=== PATIENT | female | born 1950 | race Hispanic/Latino ===

== ENCOUNTER → 2023-04-21 15:56 | Outpatient (CLI) | payer MEDICARE, OTHER, SELFPAY ==
[2023-04-21 16:25] LABS: Ammonia (NH3) 35 umol/L (9-30)
[2023-04-21 16:31] LABS: Add Manual Diff / Slide Review NO; Basophils Absolute Auto 0 /uL (0-100); Basophils Percent Auto 0.9 % (0-2); Eosinophils Absolute Auto 200 /uL (0-450); Eosinophils Percent Auto 3.9 % (2-4); Hematocrit 38.7 % (36-46); Hemoglobin 13.2 g/dL (12.0-16.0); Lymphocytes Absolute Auto 800 /uL (1100-4500); Lymphocytes Percent Auto 15.4 % (25-40); Mean Corpuscular HGB Conc 34.2 % (30-36); Mean Corpuscular Volume 99.4 fL (80-100); Monocytes Absolute Auto 400 /uL (0-900); Monocytes Percent Auto 8.1 % (3-14); Neutrophils Absolute Auto 3700 /uL (1500-7000); Neutrophils Percent Auto 71.7 % (50-75); Platelet Count 111 X10^3/uL (150-400); Red Blood Cell Count 3.89 X10^6/uL (4.0-5.2); Red Cell Distribution Width 13.7 % (11.6-14.8); White Blood Cell Count 5.2 X10^3/uL (4.5-11.0)
[2023-04-21 17:08] LABS: Alanine Aminotransferase 42 IU/L (<35); Albumin Globulin Ratio 1.3 (1.0-2.8); Alkaline Phosphatase 106 U/L (38-126); Aspartate Aminotransferase 47 IU/L (14-36); BUN Creatinine Ratio 22.1 (6-22); Bilirubin Total 1.8 mg/dL (0.2-1.3); Blood Urea Nitrogen 17 mg/dL (7-17); Calcium 9.8 mg/dL (8.4-10.2); Carbon Dioxide 25 mmol/L (22-32); Chloride 101 mmol/L (98-107); Cholesterol 147 mg/dL (140-199); Estimated Glomerular Filt Rate > 60 mL/min (>60); Globulin 3.2 g/dL (1.7-4.1); Glucose 132 mg/dL (80-110); HDL Cholesterol 56 mg/dL (40-60); HEMOLYSIS < 15 (0-50); LDL Cholesterol Calculated 63 mg/dL (<100); Potassium 4.4 mmol/L (3.4-5.1); Sodium 134 mmol/L (137-145); Total Protein 7.2 g/dL (6.3-8.2); Triglycerides 140 mg/dL (35-150)
[2023-04-21 17:34] LABS: TSH w/ Reflex to FT4 2.59 uIU/mL (0.47-4.68)
[2023-04-21 17:38] LABS: Creatinine Urine Random 54.9 mg/dL
[2023-04-21 17:43] LABS: Microalbumi Creatinin Ratio Ur 14.5 ug/mg CR (<30); Microalbumin Urine Random 0.8 mg/dL (0-1.6)
[2023-04-23 06:44] LABS: x Labcorp Estim. Avg Glu (eAG) 148 mg/dL (.); x Labcorp Hemoglobin A1c 6.8 % (4.8-5.6)
== END ==
PROVIDERS: PCP Family Medicine; Referring Provider Family Medicine; Visit Provider Family Medicine
DX: E11.9 Type 2 diabetes mellitus without complications (principal); K74.60 Unspecified cirrhosis of liver; I10 Essential (primary) hypertension
CPT/HCPCS: 36415; 80053; 80061; 82043; 82140; 82570; 83036; 84443; 85025

== ENCOUNTER 2023-04-27 12:09 | Day surgery (SDC) | payer MEDICARE, OTHER, SELFPAY ==
--- NOTE | 2023-04-27 | PATH_ITS ---
[facility] Accession Number: [id number] No. of containers..01 Tissue . 01 Material submitted: . colon - TRANSVERSE COLON POLYP . 01 Diagnosis: Transverse Colon, Polypectomy: Tubular adenoma. MRV 04/30/2023 1705 Local . 01 Electronically signed: . Roseanna Hensley MD, Pathologist NPI- [id number] . 01 Gross description: . TRANSVERSE COLON POLYP: Received in formalin is 1 fragment(s) of danielle, soft tissue measuring 0.3 x 0.3 x 0.3 cm submitted entirely in 1 cassette(s) /AUSTYN 04/29/2023 2233 Local . 01 Pathologist provided ICD-10: D12.3 . 01 CPT . 554386 Specimen Comment: A courtesy copy of this report has been sent to [phone] Performed at: 01 [facility] [address] [place] [address], [place], [place] [id number] MD Nitesh Low MD Phone: [phone]
[2023-04-27 12:51] VITALS: BP 153/69; PULSE 66; RESP 16; TEMP 36.2; O2SAT 96; BMI 36.6
[2023-04-27] MEDS: LACTATED RINGERS 1,000 ML 200 ML IV (13:14)
--- NOTE | 2023-04-27 13:45 | PM.HP.1 ---
History of Present Illness History of Present Illness Date Patient Seen: 04/27/23 Time Patient Seen: 13:45 Chief complaint: EGD & Colonoscopy Narrative: 72-year-old woman history of cirrhosis with esophageal varices and previous paracentesis here for screening EGD and colonoscopy. Last colonoscopy was approximately 5 years ago with benign polyp. Currently no abdominal pain nausea vomiting blood per rectum. March 2023 Plt 111, TB 1.8, Albumin 4, Cr 0.8 PFSH Medical History (Updated 04/27/23 @ 13:47 by Levar Mandel MD) Anemia Anxiety Arthritis Chicken pox Cirrhosis Colon polyps Depression Depression Diabetes type 2, controlled Hypertension Hypothyroidism Measles Mumps Neuropathy Painful menstrual periods Sleep apnea Surgical History Anesthesia History of cholecystectomy (~1968) History of hysterectomy History of tubal ligation (~1974) Family History Father COPD (chronic obstructive pulmonary disease) Mother Diabetes mellitus History of heart disease Hyperlipidemia Hypertension Brother Type 2 diabetes mellitus Hypertension Sister Cancer Sister Osteopenia Grandfather Cancer Grandfather Pneumonia Social History household members: none Smoking Status: Former smoker alcohol intake: never Meds Home Medications and Allergies Home Medications Medication Instructions Recorded Confirmed Type L.parac,rhamn-B.animalis-vit C PO DAILY 04/21/23 04/21/23 History [Daily Probiotic (4 Strains)] escitalopram oxalate 5 mg tablet 5 mg PO DAILY 04/21/23 04/27/23 History furosemide 20 mg tablet 20 mg PO DAILY 04/21/23 04/27/23 History glimepiride 2 mg tablet 2 mg PO BID 04/21/23 04/21/23 History lactulose 10 gram/15 mL oral 10 g PO DAILY 04/21/23 04/27/23 History solution (Constulose) levothyroxine 75 mcg tablet 75 mcg PO DAILY 04/21/23 04/27/23 History magnesium 300 mg PO DAILY 04/21/23 04/27/23 History metformin 500 mg tablet 500 mg PO BID 04/21/23 04/27/23 History propranolol 10 mg tablet 10 mg PO ONCE 04/21/23 04/27/23 History tramadol PO 04/21/23 04/21/23 History Allergies Allergy/AdvReac Type Severity Reaction Status Date / Time rubber, unspecified Allergy Verified 04/27/23 12:47 wool Allergy Verified 04/27/23 12:47 morphine AdvReac Unknown Verified 04/27/23 12:47 propoxyphene [From Darvon] AdvReac Unknown Verified 04/27/23 12:47 Exam Vital Signs (past 8 hours): - 04/27/23 12:51 Temperature 97.2 F L Pulse Rate 66 Respiratory Rate 16 Blood Pressure 153/69 H Pulse Oximetry 96 Oxygen Delivery Method Room Air Oxygen Delivery Method Room Air Narrative Exam Narrative: General adult woman alert oriented no acute distress Abdomen soft nondistended nontender Extremities warm well perfused Assessment & Plan Assessment and plan (1) Cirrhosis: Qualifiers: Hepatic cirrhosis type: other cirrhosis Qualified Code(s): K74.69 - Other cirrhosis of liver Status: Acute (2) Colon polyps: Status: Acute Assessment & Plan narrative: 72-year-old woman with end-stage liver disease here for screening EGD and colonoscopy. Technical details were discussed. Risks, benefits, alternatives explained. Risks including but not limited to myocardial infarction, aspiration, bleeding, pain, missed lesion, incomplete examination, need for further radiographic studies, intestinal perforation, and need for major abdominal surgery were discussed. All questions were answered to their satisfaction, and they are in agreement with this plan.
[2023-04-27 14:14] VITALS: BP 111/57; PULSE 71; RESP 12; TEMP 35.9; O2SAT 96
--- NOTE | 2023-04-27 14:14 | PM.OP.EC ---
Operative Date/Time/Diagnoses Date of procedure: 04/27/23 Time of procedure: 14:15 Pre-op diagnosis: Personal history of colonic polyps Cirrhosis Post-op diagnosis: same Procedure & Clinicians Study performed: Esophagoduodenoscopy and colonoscopy Same procedure as scheduled: Yes Indications: 72-year-old woman with end-stage liver disease here for screening EGD and colonoscopy. Surgeon: Levar Mandel Procedure Notes Procedure in detail: The history and physical was performed/updated and the patient is ASA class is 3. The procedure was discussed in detail with the patient. Potential risks complications including infection, bleeding, missed diagnosis, perforation, need for surgery, and were explained. Their questions were answered and informed consent was obtained. Patient placed in left lateral decubitus position. Time out was performed. Procedural sedation was administered by Anesthesia. A bite block was placed. the scope was inserted into the mouth and advanced through the esophagus . Esophagus was notable for grade 2 esophageal varices in the distal esophagus. No esophageal ulcerations. The stomach mucosa was notable for congested mucosa, a few small flecks of clot were observed as well as mild gastritis. The pylorus was intubated and the duodenum was normal to the 2nd portion. The scope was withdrawn into the esophagus the Z line was seen at 35 cm from the incisions. There was no Garcia's esophagitis, esophageal masses or strictures. Stomach was desufflated and scope removed. Examination began with a thorough inspection of the perianal area there was no evidence of fissures, fistulae, external hemorrhoids or cutaneous malignancy. The colonoscopy scope was then placed into the anal canal and was advanced to the cecum, which was identified by the ileocecal valve, the appendiceal orifice and the confluence of the taenia. The scope was then slowly withdrawn examining colon thoroughly in all directions, irrigating it of any residual stool. Within the transverse colon there was a 5 mm polyp which was entirely removed with biopsy forceps. The sigmoid colon was notable for mild diverticulosis. Internal hemorrhoids with retroflexion within the rectum. The patient tolerated the procedure well. They will be discharged once criteria are met. The prep was of good/excellent quality. The withdrawl time was 7 minutes. Specimen(s): other (Transverse polyp) Impression: Cirrhosis, colonic polyp x1 Post-procedure Plan for aftercare: Follow-up is dependent on pathology findings. Disposition: same day surgery
[2023-04-27 14:19] VITALS: BP 107/80; PULSE 74; RESP 16; O2SAT 93
[2023-04-27 14:24] VITALS: BP 111/60; PULSE 67; RESP 18; TEMP 36.1; O2SAT 95
[2023-04-27 14:35] VITALS: BP 127/60; PULSE 59; RESP 16; O2SAT 98
== END 2023-04-27 15:07 | disposition home or self-care (01) ==
PROVIDERS: PCP Family Medicine; Referring Provider Surgery; Visit Provider Surgery
PROC: 0DJD8ZZ Inspection of Lower Intestinal Tract, Via Natural or Artificial Opening Endoscopic (ICD-10-PCS; CPT 45378; principal; 2023-04-27 13:30)
PROC: 0DJ08ZZ Inspection of Upper Intestinal Tract, Via Natural or Artificial Opening Endoscopic (ICD-10-PCS; CPT 43235; 2023-04-27 13:30)
DX: Z12.11 Encounter for screening for malignant neoplasm of colon (principal); Z86.010 Personal history of colon polyps; K74.60 Unspecified cirrhosis of liver; I85.10 Secondary esophageal varices without bleeding; K29.70 Gastritis, unspecified, without bleeding; D12.3 Benign neoplasm of transverse colon
CPT/HCPCS: 45380; 43235; J2704; J3010

== ENCOUNTER → 2023-11-08 14:27 | Outpatient (CLI) | payer MEDICARE, OTHER, SELFPAY ==
[2023-11-08 15:51] LABS: Hemoglobin A1C% w Est Avg Glu 6.2 % (4.0-6.0)
[2023-11-08 16:01] LABS: Alanine Aminotransferase 36 IU/L (<35); Albumin 3.7 g/dL (3.5-5.0); Albumin Globulin Ratio 1.1 (1.0-2.8); Alkaline Phosphatase 88 U/L (38-126); Aspartate Aminotransferase 43 IU/L (14-36); BUN Creatinine Ratio 18.8 (6-22); Bilirubin Total 1.5 mg/dL (0.2-1.3); Blood Urea Nitrogen 15 mg/dL (7-17); Calcium 10.2 mg/dL (8.4-10.2); Carbon Dioxide 27 mmol/L (22-32); Chloride 102 mmol/L (98-107); Estimated Glomerular Filt Rate > 60 mL/min (>60); Globulin 3.5 g/dL (1.7-4.1); Glucose 116 mg/dL (80-110); HEMOLYSIS < 15 (0-50); Potassium 4.7 mmol/L (3.4-5.1); Sodium 136 mmol/L (137-145); Total Protein 7.2 g/dL (6.3-8.2)
[2023-11-08 17:16] LABS: Creatinine Urine Random 43.6 mg/dL
[2023-11-08 17:24] LABS: Microalbumi Creatinin Ratio Ur 61.9 ug/mg CR (<30); Microalbumin Urine Random 2.7 mg/dL (0-1.6)
== END ==
PROVIDERS: PCP Family Medicine; Referring Provider Family Medicine; Visit Provider Family Medicine
DX: E11.9 Type 2 diabetes mellitus without complications (principal); K74.60 Unspecified cirrhosis of liver; I10 Essential (primary) hypertension
CPT/HCPCS: 36415; 80053; 82043; 82570; 83036

== ENCOUNTER → 2024-02-07 14:52 | Outpatient (CLI) | payer MEDICARE, OTHER, SELFPAY ==
[2024-02-07 17:49] LABS: Add Manual Diff / Slide Review NO; Basophils Absolute Auto 0 /uL (0-100); Basophils Percent Auto 0.8 % (0-2); Eosinophils Absolute Auto 200 /uL (0-450); Eosinophils Percent Auto 3.7 % (2-4); Hemoglobin 9.9 g/dL (12.0-16.0); Lymphocytes Absolute Auto 700 /uL (1100-4500); Lymphocytes Percent Auto 13.7 % (25-40); Mean Corpuscular Hemoglobin 31.1 PG (26-34); Mean Corpuscular Volume 94.1 fL (80-100); Monocytes Absolute Auto 400 /uL (0-900); Monocytes Percent Auto 8.2 % (3-14); Neutrophils Absolute Auto 3900 /uL (1500-7000); Neutrophils Percent Auto 73.6 % (50-75); Platelet Count 121 X10^3/uL (150-400); Red Blood Cell Count 3.19 X10^6/uL (4.0-5.2); Red Cell Distribution Width 14.4 % (11.6-14.8); White Blood Cell Count 5.3 X10^3/uL (4.5-11.0)
[2024-02-07 18:01] LABS: Alanine Aminotransferase 32 IU/L (<35); Albumin 3.6 g/dL (3.5-5.0); Albumin Globulin Ratio 1.1 (1.0-2.8); Alkaline Phosphatase 95 U/L (38-126); Aspartate Aminotransferase 41 IU/L (14-36); BUN Creatinine Ratio 13.5 (6-22); Bilirubin Total 1.4 mg/dL (0.2-1.3); Blood Urea Nitrogen 12 mg/dL (7-17); Calcium 9.6 mg/dL (8.4-10.2); Carbon Dioxide 24 mmol/L (22-32); Chloride 104 mmol/L (98-107); Estimated Glomerular Filt Rate > 60 mL/min (>60); Globulin 3.3 g/dL (1.7-4.1); Glucose 162 mg/dL (80-110); HEMOLYSIS < 15 (0-50); Potassium 5.3 mmol/L (3.4-5.1); Sodium 136 mmol/L (137-145); Total Protein 6.9 g/dL (6.3-8.2)
[2024-02-07 18:04] LABS: Hemoglobin A1C% w Est Avg Glu 6.6 % (4.0-6.0)
[2024-02-07 18:06] LABS: NT-proBNP (BNP-Adult 18+) 302 pg/mL (<450)
== END ==
PROVIDERS: PCP Family Medicine; Referring Provider Family Medicine; Visit Provider Family Medicine
DX: E11.9 Type 2 diabetes mellitus without complications (principal); Z00.00 Encounter for general adult medical examination without abnormal findings; K74.60 Unspecified cirrhosis of liver; I10 Essential (primary) hypertension; M79.89 Other specified soft tissue disorders
CPT/HCPCS: 36415; 80053; 83036; 83880; 85025

== ENCOUNTER → 2024-03-06 15:13 | Outpatient (CLI) | payer MEDICARE, OTHER, SELFPAY ==
--- NOTE | 2024-03-06 15:16 | DI.US.S_ITS ---
PROCEDURE: US PERIPH VENOUS LOW EXTREM LT INDICATIONS: leg swelling, possible DVT TECHNIQUE: Real-time imaging, as well as color and pulse Doppler interrogation, were performed of the lower extremity deep veins from the inguinal ligament to the popliteal fossa, with documentation of the visualized calf veins. COMPARISON: None. FINDINGS: The common femoral, femoral, popliteal, and the visualized calf veins are normally compressible, and free of intraluminal thrombus. Color and pulse Doppler demonstrate normal phasic intraluminal flow. There is normal augmentation response to distal compression maneuver. IMPRESSION: No findings of lower extremity deep venous thrombosis. Dictated by: Sal García M.D. on 03/06/2024 at 15:50 Approved by: Sal García M.D. on 03/06/2024 at 15:50
== END ==
LOC: US 15:15
PROVIDERS: PCP Family Medicine; Referring Provider Family Medicine; Visit Provider Family Medicine
DX: M79.89 Other specified soft tissue disorders (principal)
CPT/HCPCS: 93971

== ENCOUNTER → 2024-03-09 15:31 | Outpatient (CLI) | payer MEDICARE, OTHER, SELFPAY ==
[2024-03-09 17:00] LABS: Add Manual Diff / Slide Review NO; Basophils Absolute Auto 0 /uL (0-100); Basophils Percent Auto 0.7 % (0-2); Eosinophils Absolute Auto 200 /uL (0-450); Eosinophils Percent Auto 3.8 % (2-4); Hematocrit 28.2 % (36-46); Hemoglobin 9.4 g/dL (12.0-16.0); Lymphocytes Absolute Auto 600 /uL (1100-4500); Lymphocytes Percent Auto 13.3 % (25-40); Mean Corpuscular HGB Conc 33.3 % (30-36); Mean Corpuscular Hemoglobin 30.5 PG (26-34); Mean Corpuscular Volume 91.5 fL (80-100); Monocytes Absolute Auto 400 /uL (0-900); Monocytes Percent Auto 8.3 % (3-14); Neutrophils Absolute Auto 3200 /uL (1500-7000); Neutrophils Percent Auto 73.9 % (50-75); Platelet Count 125 X10^3/uL (150-400); Red Blood Cell Count 3.08 X10^6/uL (4.0-5.2); Red Cell Distribution Width 14.7 % (11.6-14.8); White Blood Cell Count 4.3 X10^3/uL (4.5-11.0)
[2024-03-09 17:17] LABS: INR 1.1 (0.9-1.3); Prothrombin Time 13.1 SECONDS (9.4-12.5)
[2024-03-09 17:26] LABS: Alanine Aminotransferase 23 IU/L (<35); Albumin 3.9 g/dL (3.5-5.0); Albumin Globulin Ratio 1.3 (1.0-2.8); Alkaline Phosphatase 130 U/L (38-126); Aspartate Aminotransferase 31 IU/L (14-36); BUN Creatinine Ratio 19.3 (6-22); Bilirubin Total 1.1 mg/dL (0.2-1.3); Blood Urea Nitrogen 16 mg/dL (7-17); Calcium 9.6 mg/dL (8.4-10.2); Carbon Dioxide 28 mmol/L (22-32); Chloride 100 mmol/L (98-107); Estimated Glomerular Filt Rate > 60 mL/min (>60); Globulin 3.1 g/dL (1.7-4.1); Glucose 205 mg/dL (80-110); HEMOLYSIS < 15 (0-50); Potassium 4.2 mmol/L (3.4-5.1); Sodium 132 mmol/L (137-145)
[2024-03-09 17:57] LABS: Ferritin 9 ng/mL (11-264)
[2024-03-10 04:55] LABS: HBsAg Screen Negative (Negative); Hepatitis A Antibody IgM Negative (Negative); Hepatitis B Core Antibody IgM Negative (Negative); Hepatitis C Antibody Non Reactive (Non Reactive)
[2024-03-10 09:56] LABS: Alpha Fetoprotein 2.8 ng/mL (0.0-9.2)
[2024-03-11 17:31] LABS: Smooth Muscle Antibody 10 Units (0-19)
== END ==
PROVIDERS: PCP Family Medicine; Referring Provider Internal Medicine Gastroenterology; Visit Provider Internal Medicine Gastroenterology
DX: K74.60 Unspecified cirrhosis of liver (principal); R18.8 Other ascites
CPT/HCPCS: 36415; 80053; 80074; 82105; 82728; 85025; 85610; 86015

== ENCOUNTER → 2024-03-10 07:59 | Outpatient (CLI) | payer MEDICARE, OTHER, SELFPAY ==
--- NOTE | 2024-03-10 | DI.ECHO.S_ITS ---
[facility]+ [facility] : : [address] : : [place] : : [id number] : : Phone: [phone] Echocardiogram Report + + :Name: WILLIE LOCKHART Study Date: 03/10/2024 Height: 62 in : :[facility] ReadingLocation: Weight: 208 lb : : Gender: Female BSA: 1.9 m2 : :: 1950 Age: 73 yrs BP: 134/69 mmHg: :Reason For Study: ENCOUNTER FOR ANNUAL WELLNESS VISIT : :Ordering Physician: JAYE ALEMAN Performed By: Vinicio Ogden : :Referring: JAYE ALEMAN : + + Interpretation Summary Normal sinus rhythm. Normal LV size and wall thickness. Normal wall motion LV systolic function. Ejection fraction is 60-65%. Moderate left atrial enlargement. Otherwise normal chamber sizes. Aortic valve is a trileaflet structure. Aortic valve leaflets are moderately thickened and calcified. There is moderately reduced leaflet excursion. There is moderate associated aortic stenosis with peak velocity of 3 m/s and mean gradient of 20 mmHg. Moderate mitral annular calcification. No prior study available for comparison. Procedure: A two-dimensional transthoracic echocardiogram with color flow and Doppler was performed. The study quality was technically adequate. There is no prior echocardiogram noted for this patient. The patient was in normal sinus rhythm during the exam. The heart rate ranged between 64-78 bpm during the study. Left Ventricle: The left ventricle appears normal in size, wall thickness, and systolic function without any focal wall motion abnormalities. Left ventricular wall thickness is mildly increased. The ejection fraction is estimated to be 55-60%. Right Ventricle: The right ventricle is normal in size and function. The right ventricular systolic function is normal. Atria: The left atrium is moderately dilated. Right atrial size is normal. The interatrial septum grossly appears intact with no obvious evidence for an atrial septal defect. Mitral Valve: The mitral valve is normal in structure and function. MAC. There is no mitral valve stenosis. There is trace mitral regurgitation. Aortic Valve: The aortic valve is trileaflet. There is moderate aortic valve sclerosis. There is moderate aortic stenosis. The peak aortic velocity is 2.98 m/sec. The aortic valve mean gradient is 19.8 mmHg. No aortic regurgitation is present. Tricuspid Valve: The tricuspid valve is normal in structure and function. There is no tricuspid stenosis. There is a trace or physiologic amount of tricuspid regurgitation. Pulmonic Valve: The pulmonic valve is not well visualized. There is no pulmonic valvular stenosis. There is no pulmonic valvular regurgitation. Great Vessels: The aortic root is normal size. The dimensions of the ascending aorta are normal. The inferior vena cava was not visualized. Pericardium/ Pleura There is no pericardial effusion. There is no pleural effusion. MMode/2D Measurements & Calculations LVIDd: 4.6 cm LVOT diam: 2.1 cm LVIDs: 3.3 cm Ao root diam: 2.9 cm FS: 28.1 % asc Aorta Diam: 3.2 cm IVSd: 1.3 cm Ao Arch Diam (Prox Trans): 2.3 cm LVPWd: 1.3 cm LV gill. diameter/BSA (cm/m^2): 2.4 LV sys. diameter/BSA (cm/m^2): 1.7 LA A2 area: 18.7 cm2 RA long axis: 4.2 cm LA A4 area: 28.3 cm2 RA area: 12.6 cm2 LA length (vol): 6.3 cm RA vol: 32.1 ml LA vol: 71.7 ml RA : 16.5 ml/m2 LA vol index: 36.9 ml/m2 RVD1 (basal): 3.4 cm RVD2 (mid): 2.8 cm TAPSE: 2.6 cm Doppler Measurements & Calculations Ao V2 max: 297.9 cm/sec LVOT Max Caden: 123.7 cm/sec Ao V2 mean: 208.9 cm/sec LV V1 max P.1 mmHg Ao max P.5 mmHg LV V1 VTI: 32.2 cm Ao mean P.8 mmHg BRI(I,D): 1.4 cm2 Ao V2 VTI: 78.7 cm BRI(V,D): 1.5 cm2 sev ratio: 0.41 BRI indexed to BSA (cm^2/m^2): 0.74 MV E max caden: 110.4 cm/sec PA V2 max: 116.5 cm/sec MV A max caden: 86.7 cm/sec PA V2 mean: 82.0 cm/sec MV E/A: 1.3 PA mean P.0 mmHg Med Peak E' Caden: 7.1 cm/sec PA pr(Accel): 41.3 mmHg E/E' med: 15.5 Lat Peak E' Caden: 9.2 cm/sec E/E' lat: 12.0 E/e' average: 13.7 MV dec time: 0.19 sec SV(LVOT): 113.0 ml Electronically signed by: Anuradha Chin M.D. on [place] Physician:03/10/2024 05:21 PM
--- NOTE | 2024-03-10 10:00 | DI.US.S_ITS ---
PROCEDURE: US ABDOMEN COMPLETE INDICATIONS: CIRRHOSIS TECHNIQUE: Real-time scanning was performed of the abdominal and retroperitoneal organs, with image documentation. COMPARISON: None. FINDINGS: Liver: The liver measures 14.7 cm in length demonstrates increased echogenicity and surface nodularity. There is trace scratch that Gallbladder: Surgically absent. Biliary ducts: Intrahepatic bile ducts are non-dilated. Extrahepatic bile duct caliber measures 8.6 mm. Normal is 6-7 mm or less in diameter, or 10 mm or less post-cholecystectomy. Pancreas: Visualized portions of the pancreas are sonographically normal. Spleen: The spleen measures 13.0 cm in length. Kidneys: Kidneys are normal in size and echotexture. Right kidney measures 11.6 cm long; left kidney measures 11.5 cm long. No hydronephrosis or nephrolithiasis. No solid masses. Aorta: Not visualized due to bowel gas. Iliacs: Not visualized due to bowel gas. IVC: Intrahepatic inferior vena cava is patent. Miscellaneous: There is trace free perihepatic fluid. IMPRESSION: 1. Hepatic cirrhosis. No discrete lesions visualized. 2. Mild right upper quadrant ascites. Dictated by: Kaylen Lo M.D. on 03/10/2024 at 10:10 Approved by: Kaylen Lo M.D. on 03/10/2024 at 10:12
== END ==
LOC: ECHO 08:00
PROVIDERS: PCP Family Medicine; Referring Provider Family Medicine; Visit Provider Family Medicine
DX: Z00.00 Encounter for general adult medical examination without abnormal findings (principal); R18.8 Other ascites; E11.9 Type 2 diabetes mellitus without complications; K74.60 Unspecified cirrhosis of liver; I10 Essential (primary) hypertension; M79.89 Other specified soft tissue disorders; Z90.49 Acquired absence of other specified parts of digestive tract
CPT/HCPCS: 76700; 93306

== ENCOUNTER → 2024-04-14 11:15 | Outpatient (CLI) | payer MEDICARE, OTHER, SELFPAY ==
[2024-04-14 13:44] LABS: BUN Creatinine Ratio 22.8 (6-22); Blood Urea Nitrogen 23 mg/dL (7-17); Calcium 9.3 mg/dL (8.4-10.2); Carbon Dioxide 26 mmol/L (22-32); Chloride 100 mmol/L (98-107); Estimated Glomerular Filt Rate 58 mL/min (>60); Glucose 167 mg/dL (80-110); Sodium 134 mmol/L (137-145)
[2024-04-14 13:54] LABS: HEMOLYSIS 106 (0-50); Potassium 5.9 mmol/L (3.4-5.1)
== END ==
PROVIDERS: PCP Family Medicine; Referring Provider Family Medicine; Visit Provider Family Medicine
DX: I10 Essential (primary) hypertension (principal); K74.60 Unspecified cirrhosis of liver; M79.89 Other specified soft tissue disorders
CPT/HCPCS: 36415; 80048

== ENCOUNTER → 2024-06-29 11:54 | Outpatient (CLI) | payer MEDICARE, OTHER, SELFPAY ==
[2024-06-29 12:41] LABS: Ammonia (NH3) 45 umol/L (9-30)
[2024-06-29 12:50] LABS: Hemoglobin 9.3 g/dL (12.0-16.0); Mean Corpuscular HGB Conc 33.1 % (30-36); Mean Corpuscular Hemoglobin 29.7 PG (26-34); Mean Corpuscular Volume 89.6 fL (80-100); Platelet Count 122 X10^3/uL (150-400); Red Blood Cell Count 3.12 X10^6/uL (4.0-5.2); Red Cell Distribution Width 15.2 % (11.6-14.8); White Blood Cell Count 4.8 X10^3/uL (4.5-11.0)
[2024-06-29 13:12] LABS: Alanine Aminotransferase 33 IU/L (<35); Albumin Globulin Ratio 1.2 (1.0-2.8); Alkaline Phosphatase 96 U/L (38-126); Aspartate Aminotransferase 38 IU/L (14-36); BUN Creatinine Ratio 22.4 (6-22); Bilirubin Total 1.4 mg/dL (0.2-1.3); Blood Urea Nitrogen 24 mg/dL (7-17); Calcium 9.7 mg/dL (8.4-10.2); Carbon Dioxide 25 mmol/L (22-32); Chloride 99 mmol/L (98-107); Estimated Glomerular Filt Rate 54 mL/min (>60); Globulin 3.3 g/dL (1.7-4.1); Glucose 171 mg/dL (80-110); HEMOLYSIS < 15 (0-50); Potassium 5.2 mmol/L (3.4-5.1); Sodium 133 mmol/L (137-145); Total Protein 7.3 g/dL (6.3-8.2)
[2024-06-29 13:43] LABS: TSH w/ Reflex to FT4 2.04 uIU/mL (0.47-4.68)
[2024-06-29 13:45] LABS: Ferritin 8 ng/mL (11-264)
[2024-06-29 14:27] LABS: Hemoglobin A1C% w Est Avg Glu 7.7 % (4.0-6.0)
== END ==
PROVIDERS: PCP Family Medicine; Referring Provider Family Medicine; Visit Provider Family Medicine
DX: D64.9 Anemia, unspecified (principal); E03.9 Hypothyroidism, unspecified; K74.60 Unspecified cirrhosis of liver; E11.9 Type 2 diabetes mellitus without complications; R53.82 Chronic fatigue, unspecified
CPT/HCPCS: 36415; 80053; 82140; 82728; 83036; 84443; 85027

== ENCOUNTER → 2024-10-03 13:43 | Outpatient (CLI) | payer MEDICARE, OTHER, SELFPAY ==
[2024-10-03 14:18] LABS: Ammonia (NH3) < 9 umol/L (9-30)
[2024-10-03 14:24] LABS: Add Manual Diff / Slide Review NO; Basophils Absolute Auto 0 /uL (0-100); Basophils Percent Auto 0.9 % (0-2); Eosinophils Absolute Auto 200 /uL (0-450); Eosinophils Percent Auto 3.7 % (2-4); Hematocrit 23.8 % (36-46); Hemoglobin 7.7 g/dL (12.0-16.0); Lymphocytes Absolute Auto 600 /uL (1100-4500); Lymphocytes Percent Auto 13.1 % (25-40); Mean Corpuscular HGB Conc 32.5 % (30-36); Mean Corpuscular Hemoglobin 27.7 PG (26-34); Mean Corpuscular Volume 85.3 fL (80-100); Monocytes Absolute Auto 300 /uL (0-900); Monocytes Percent Auto 7.2 % (3-14); Neutrophils Absolute Auto 3200 /uL (1500-7000); Neutrophils Percent Auto 75.1 % (50-75); Platelet Count 140 X10^3/uL (150-400); Red Blood Cell Count 2.79 X10^6/uL (4.0-5.2); Red Cell Distribution Width 15.6 % (11.6-14.8); White Blood Cell Count 4.2 X10^3/uL (4.5-11.0)
[2024-10-03 14:42] LABS: BUN Creatinine Ratio 11.8 (6-22); Blood Urea Nitrogen 12 mg/dL (7-17); Calcium 9.5 mg/dL (8.4-10.2); Carbon Dioxide 26 mmol/L (22-32); Chloride 98 mmol/L (98-107); Estimated Glomerular Filt Rate 57 mL/min (>60); Glucose 197 mg/dL (80-110); HEMOLYSIS < 15 (0-50); Potassium 4.5 mmol/L (3.4-5.1); Sodium 131 mmol/L (137-145)
[2024-10-03 14:45] LABS: Hemoglobin A1C% w Est Avg Glu 9.7 % (4.0-6.0)
[2024-10-03 15:19] LABS: Ferritin 8 ng/mL (11-264)
== END ==
PROVIDERS: PCP Family Medicine; Referring Provider Family Medicine; Visit Provider Family Medicine
DX: E11.9 Type 2 diabetes mellitus without complications (principal); I35.0 Nonrheumatic aortic (valve) stenosis; R79.0 Abnormal level of blood mineral; K74.69 Other cirrhosis of liver; D64.89 Other specified anemias; J06.9 Acute upper respiratory infection, unspecified; R60.0 Localized edema
CPT/HCPCS: 36415; 80048; 82140; 82728; 83036; 85025

== ENCOUNTER 2024-11-22 07:25 | Emergency (ER) | payer MEDICARE, OTHER, SELFPAY ==
[2024-11-22] VITALS (9 sets, daily range): BP systolic 111–128; BP diastolic 56–63; PULSE 65–78; RESP 16; TEMP 36.9; O2SAT 97–98; BMI 35.6
--- NOTE | 2024-11-22 07:26 | DI.RAD.S_ITS ---
PROCEDURE: XR ANKLE LT MIN 3V INDICATIONS: eval for fracture TECHNIQUE: 3 views of the ankle were acquired. COMPARISON: None. FINDINGS: Bones: Acute, displaced fractures of the medial lateral malleolus. Ankle mortise is maintained. No suspicious osseous erosions. Small retrocalcaneal enthesophyte. Diffuse osteopenia. Soft tissues: No tibiotalar joint effusion. Achilles tendon appears normal. Soft tissue swelling overlying the left ankle. IMPRESSION: Mildly displaced bimalleolar fracture. Ankle mortise is preserved. Diffuse osteopenia. Dictated by: Geo Ramirez M.D. on 11/22/2024 at 7:56 Approved by: Geo Ramirez M.D. on 11/22/2024 at 7:57
--- NOTE | 2024-11-22 07:35 | DI.RAD.S_ITS ---
PROCEDURE: XR TIBIA FIBULA LT 2V INDICATIONS: prox fibula pain TECHNIQUE: 2 views of the tibia and fibula were acquired. COMPARISON: [facility], CR, XR ANKLE LT MIN 3V, 11/22/2024, 7:35. FINDINGS: Bones: Bimalleolar fractures better seen on dedicated ankle series. No fracture of the proximal fibula or proximal tibia. Mild degenerative changes of the left knee. No suspicious osseous lesions. Soft tissues: No suspicious soft tissue calcifications or masses. Left lower leg soft tissue swelling. IMPRESSION: Bimalleolar fractures. No proximal fibular fracture seen. Dictated by: Geo Ramirez M.D. on 11/22/2024 at 7:58 Approved by: Geo Ramirez M.D. on 11/22/2024 at 8:00
--- NOTE | 2024-11-22 07:39 | ED.LOWEXIN ---
HPI - Extremity Injury (Lower) General Chief Complaint: Extremity Injury, Lower Stated Complaint: L Ankle Sprain Time Seen by Provider: 11/22/24 07:26 Source: patient and EMS Mode of arrival: EMS Limitations: no limitations History of Present Illness HPI Narrative: Patient is a 74-year-old female who is here for evaluation of a left ankle injury. Patient states this morning she was standing next to a chair. She states she was trying to make a decision about whether or not to go to the bathroom or going to the kitchen to get something to drink. During this movement she twisted her left ankle. No other injuries from the event. She does state that she was ?weak? ankles. Does describe some pain in her left knee as well. Related Data Home Medications Medication Instructions Recorded Confirmed lactulose 10 gram/15 mL oral 10 g PO DAILY 04/21/23 10/03/24 solution (Constulose) tramadol PO 04/21/23 10/03/24 propylene glycol 0.6 % eye drops 1 drp EYE-BOTH DAILY 05/21/23 10/03/24 (Systane Complete) Previous Rx's Medication Instructions Recorded escitalopram oxalate 5 mg tablet 5 mg PO DAILY #90 tabs 02/07/24 glimepiride 2 mg tablet 2 mg PO BID #180 tabs 02/07/24 levothyroxine 75 mcg tablet 75 mcg PO DAILY #90 tabs 02/07/24 spironolactone 100 mg tablet 100 mg PO DAILY #90 tabs 02/07/24 Disabled Parking Permit See Rx Instructions .Route 02/23/24 .COMPLEX #1 ea cyclobenzaprine 5 mg tablet 2.5 - 5 mg (0.5 - 1 x 5 mg) PO BID 06/29/24 PRN muscle spasm #30 tabs bumetanide 1 mg tablet 2 mg (2 x 1 mg) PO DAILY edema #60 10/03/24 tabs metformin 500 mg tablet 500 mg PO BID #200 tabs 10/03/24 metoprolol succinate 25 mg 25 mg PO DAILY blood pressure #90 10/25/24 tablet,extended release 24 hr tabs Allergies Allergy/AdvReac Type Severity Reaction Status Date / Time rubber, unspecified Allergy Verified 10/03/24 12:57 wool Allergy Verified 10/03/24 12:57 morphine AdvReac Unknown Verified 10/03/24 12:57 propoxyphene [From Darvon] AdvReac Unknown Verified 10/03/24 12:57 codeine AdvReac Verified 10/03/24 12:57 Review of Systems Review of Systems Narrative: See HPI Patient History Medical History Low ferritin Normochromic anemia Aortic stenosis Encounter for subsequent annual wellness visit (AWV) in Medicare patient Arthritis Anemia Depression Anxiety Neuropathy Diabetes type 2, controlled Hypothyroidism Sleep apnea Depression Mumps Measles Chicken pox Painful menstrual periods Colon polyps Cirrhosis Hypertension Surgical History Anesthesia History of tubal ligation (~1974) History of hysterectomy History of cholecystectomy (~1968) Family History Father COPD (chronic obstructive pulmonary disease) Mother Diabetes mellitus History of heart disease Hyperlipidemia Hypertension Brother Type 2 diabetes mellitus Hypertension Sister Cancer Sister Osteopenia Grandfather Cancer Grandfather Pneumonia Social History household members: none Smoking Status: Former smoker alcohol intake: never Smoking Status: Former smoker Exam Initial Vital Signs Initial Vital Signs: Vital Signs Pulse Rate 76 11/22/24 07:28 Blood Pressure 128/61 11/22/24 07:28 Pulse Oximetry 98 11/22/24 07:28 Const General: cooperative, comfortable and No ill appearing Cardio Pulses: dorsalis pedis present on the left Skin General: no rashes or lesions noted Neuro Sensory Exam: no sensory deficits noted Extrem Other: Discomfort with palpation lateral aspect of the left ankle and also the proximal left tibia. Achilles tendon is intact. Forefoot is unremarkable. Toes unremarkable. Procedures Orthopedic Splinting/Casting Injury #1: Side: left Lower Extremity Injury Location: ankle Lower Extremity Immobilizer: posterior splint and stirrup splint Post splinting neuro exam: intact Post splinting vascular exam: intact Placed by: Provider Course Orders Ordered: ED Orders 11/22/24 07:26 XR ankle LT min 3V Stat 11/22/24 07:35 XR tibia fibula LT 2V Stat Discontinued Medications Tramadol HCl (Tramadol 50 Mg Tablet) 50 mg PO NOW ONE Stop: 11/22/24 09:28 Last Admin: 11/22/24 09:36 Dose: 50 mg Documented By: MARTHA Vital Signs Vital signs: Vital Signs - 8 hr 11/22/24 07:28 11/22/24 07:28 11/22/24 07:30 Temperature Pulse Rate 76 78 Respiratory Rate Blood Pressure 128/61 Pulse Oximetry 98 98 Oxygen Delivery Method 11/22/24 07:30 11/22/24 07:43 11/22/24 08:00 Temperature 98.4 F Pulse Rate 75 70 Respiratory Rate 16 Blood Pressure 128/63 128/63 Pulse Oximetry 97 98 Oxygen Delivery Method Room Air 11/22/24 08:00 11/22/24 08:30 11/22/24 08:30 Temperature Pulse Rate 65 Respiratory Rate Blood Pressure 124/58 L 120/56 L Pulse Oximetry 98 Oxygen Delivery Method 11/22/24 09:00 11/22/24 09:00 11/22/24 09:30 Temperature Pulse Rate 72 Respiratory Rate Blood Pressure 123/60 122/60 Pulse Oximetry 97 Oxygen Delivery Method 11/22/24 09:30 11/22/24 10:00 11/22/24 10:00 Temperature Pulse Rate 73 73 Respiratory Rate Blood Pressure 111/58 L Pulse Oximetry 98 98 Oxygen Delivery Method 11/22/24 10:19 Temperature Pulse Rate 76 Respiratory Rate 16 Blood Pressure 124/60 Pulse Oximetry 97 Oxygen Delivery Method Room Air MDM - Extremity Injury (Lower) Imaging Data Extremity x-ray #1: Radiologist's Impression: PROCEDURE: XR ANKLE LT MIN 3V INDICATIONS: eval for fracture TECHNIQUE: 3 views of the ankle were acquired. COMPARISON: None. FINDINGS: Bones: Acute, displaced fractures of the medial lateral malleolus. Ankle mortise is maintained. No suspicious osseous erosions. Small retrocalcaneal enthesophyte. Diffuse osteopenia. Soft tissues: No tibiotalar joint effusion. Achilles tendon appears normal. Soft tissue swelling overlying the left ankle. IMPRESSION: Mildly displaced bimalleolar fracture. Ankle mortise is preserved. Diffuse osteopenia. Extremity x-ray #2: Radiologist's Impression: PROCEDURE: XR TIBIA FIBULA LT 2V INDICATIONS: prox fibula pain TECHNIQUE: 2 views of the tibia and fibula were acquired. COMPARISON: [facility], , XR ANKLE LT MIN 3V, 11/22/2024, 7:35. FINDINGS: Bones: Bimalleolar fractures better seen on dedicated ankle series. No fracture of the proximal fibula or proximal tibia. Mild degenerative changes of the left knee. No suspicious osseous lesions. Soft tissues: No suspicious soft tissue calcifications or masses. Left lower leg soft tissue swelling. IMPRESSION: Bimalleolar fractures. No proximal fibular fracture seen. MDM Narrative Medical decision making narrative: This does appear to be a mechanical fall. Patient was splinted as described above. Will discharge patient home with care instructions and return precautions with family. No other injuries found on the exam or reported by the patient. Discharge Plan Departure Patient Disposition: Home Clinical Impression: Ankle fracture, left Instructions: DI for Ankle Fracture, How to Take Care of Your Splint Activity Restrictions/Additional Instructions: The splint that was placed today needs to be treated like a cast. Needs to stay on it state clean and state dry. You are going to need follow-up with orthopedic surgery. You can contact them with the number provided below. Return to the emergency department for new or worsening symptoms. Prescriptions: No Action Disabled Parking Permit See Rx Instructions .ROUTE .COMPLEX Qty: 1 0RF Rx Instructions: Permanent placard metoprolol succinate 25 mg tablet extended release 24 hr 25 mg PO DAILY Qty: 90 3RF Systane Complete 0.6 % drops 1 drp EYE-BOTH DAILY levothyroxine 75 mcg tablet 75 mcg PO DAILY Qty: 90 3RF escitalopram oxalate 5 mg tablet 5 mg PO DAILY Qty: 90 3RF glimepiride 2 mg tablet 2 mg PO BID Qty: 180 3RF Hold Instructions: ozempic spironolactone 100 mg tablet 100 mg PO DAILY Qty: 90 3RF lactulose [Constulose] 10 gram/15 mL solution 10 g PO DAILY tramadol PO cyclobenzaprine 5 mg tablet 2.5 - 5 mg PO BID PRN (Reason: muscle spasm) Qty: 30 1RF metformin 500 mg tablet 500 mg PO BID Qty: 200 3RF bumetanide 1 mg tablet 2 mg PO DAILY Qty: 60 11RF Referrals: Mustapha Kapadia DO [Primary Care Provider] - Kate Mora MD [Physician] - Stand Alone Forms: Patient Portal/API/Survey
[2024-11-22] MEDS: TRAMADOL 50 MG TABLET PO (09:36)
--- NOTE | 2024-11-22 10:17 | PC.NURSE ---
MD May stated crutches would pose a fall risk; agreed. Pt informed of walker, knee scooter, and wheelchair for non weight bearing options. Pt helped into car with CNAs and RN
== END 2024-11-22 10:19 | disposition home or self-care (01) ==
PROVIDERS: Emergency Provider Emergency Medicine; PCP Family Medicine
DX: S82.842A Displaced bimalleolar fracture of left lower leg, initial encounter for closed fracture (principal); X50.1XXA Overexertion from prolonged static or awkward postures, initial encounter; Y93.9 Activity, unspecified; Y92.89 Other specified places as the place of occurrence of the external cause
CPT/HCPCS: 29515; 73590; 73610; 99283; 99284

== ENCOUNTER 2024-12-06 12:45 | Day surgery (SDC) | payer MEDICARE, OTHER, SELFPAY ==
[2024-11-29 12:09] VITALS: BMI 36.6
[2024-12-06] VITALS (8 sets, daily range): BP systolic 110–137; BP diastolic 54–78; PULSE 71–88; RESP 12–16; TEMP 36.6–37.2; O2SAT 86–99; BMI 36.2
--- NOTE | 2024-12-06 | DI.RAD.S_ITS ---
PROCEDURE: XR ANKLE LT 2V INDICATIONS: ORIF LEFT ANKLE TECHNIQUE: 3 views of the ankle were acquired. COMPARISON: [facility], CR, XR ANKLE LT MIN 3V, 11/22/2024, 7:35. Findings and impression: Intraoperative fluoroscopic images were obtained for distal fibular and medial malleolus fixation. Please see operative note for full details. Dictated by: Jaison Nj M.D. on 12/06/2024 at 17:42 Approved by: Jaison Nj M.D. on 12/06/2024 at 17:43
[2024-12-06] MEDS: LACTATED RINGERS 1,000 ML 42 ML IV ×2 (14:09→16:43)
--- NOTE | 2024-12-06 14:55 | PM.PREOP ---
Pre-operative Note Interval Note History & Physical reviewed/Exam performed by Physician: Yes Changes to H&P: No
--- NOTE | 2024-12-06 14:57 | SUR.OPER ---
Supine on padded OR bed, head on pillow, arms secured on padded arm boards at <90 degrees abduction, legs uncrossed, safety belt at thigh, tape over blanket over lower legs.
[2024-12-06] MEDS: CEFAZOLIN 2 GM/100 ML PREMIX 100 ML IV (15:39)
--- NOTE | 2024-12-06 16:36 | P.OP_ITS ---
Operative Date/Time/Diagnoses Date of procedure: 12/06/24 Time of procedure: 16:00 Pre-op diagnosis: Left bimalleolar ankle fracture Post-op diagnosis: same Procedure & Clinicians Procedure: Open reduction internal fixation trimalleolar ankle fracture left ankle CPT code 06951 Same procedure as scheduled: Yes Indications: Patient was 74-year-old female that sustained a lef t ankle fracture. She was indicated for operative fixation to reduce the risks of posttraumatic arthritis instability displacement and dysfunction. She was also indicated for open reduction internal fixation to improve alignment, maintain alignment and allow earlier weight-bearing. The risks and benefits of the procedure have been discussed with the patient and given the opportunity to ask questions. The risks of surgery include but are not limited to infection, malunion, nonunion, persistence of pain, damage to nerves and blood vessels, posttraumatic arth ritis, DVT, PE, coardiopulmonary complications and . The patient expressed a thorough understanding of the risks and benefits of surgery and has elected to proceed. Consent was signed Surgeon: Bharti Mccain Click Yes if Unassisted: Yes Anesthesia Type: General and Local Operative Notes Findings: Minimally displaced bimalleolar ankle fracture. After fixation of the medial and lateral malleoli the ankle was stressed under fluoroscopy and the syndesmosis was stable to external rotation stress test Closure Type: primary Prosthetic devices, grafts, tissues, transplants, or devices: Arthrex FibuLock nail 3.8 x 130 2 x3.0 cancellous screws 14 and 16 mm Arthrex 4.0 cannulated lag screws 45 and 50 mm, long thread Estimated Blood Loss (mL): 2 Blood products transfused: none Tourniquet time (min): 33 Procedure in detail: Patient was seen in the preoperative area the site of surgery was marked informed consent confirmed. This was the left ankle she was brought back to the operating room by the anesthesia team and positioned supine on operative table. General anesthetic was administered. The left lower extremity was prepped and draped in standard sterile fashion a formal time-out procedure was performed confirming the patient's side and site of surgery administration of appropriate preoperative antibiotic. All were in agreement. Esmarch was used for exsanguination and the thigh tourniquet was elevated to 250 mmHg. Attention was turned to the left ankle C-arm was brought in the midline of the fibula and the lateral was drawn out on the skin. Planned incisions were marked. A small distal incision approximately 1 cm distal to the fibular tip was taken down through the skin and blunt dissected to the distal fibular tip to the bone. The fracture was minimally displaced and was in the acceptable alignment with traction rotation therefore the guidewire for the FibuLock was then advanced across the fracture and into the bone the ideal starting point was achieved. This was checked on AP and lateral planes and then this was overreamed with a 6.2 Reamer followed by the smaller Reamer. The wires were then removed and the FibuLock nail implanted. This was implanted to the proper rotation and depth. Next the talons were deployed. Then the 2 distal interlock screws were placed through small separate percutaneous incisions the 3.0 cancellous screws were placed. Then attention was turned to the medial malleolus fracture again this was minimally displaced and was able to be percutaneously reduced. This was pinned in place with K-wires. Small incisions were made over the K-wires with dissection blunt down to the medial malleolus tip. To K-wires for the 4.0 cannulated lag screws were placed parallel and checked on AP and lateral planes. These were overdrilled and then a 45 and a 50 mm long thread cannulated screws were placed. These were carefully placed to make sure they were not prominent distally. Then AP mortise and lateral fluoroscopy x-rays confirmed appropriate alignment of the hardware and placement and maintenance of the mortise. Then a stress examination with external rotation was completed that demonstrated a stable syndesmosis. At this point tourniquet was released hemostasis was achieved. The jig was removed from the jailene and the wounds were irrigated and closed with 4-0 Monocryl and 3-0 nylon suture. A well-padded posterior and U stirrup splint were applied after sterile dressings with Xeroform gauze and Webril. Prior to dressing placement there was some local anesthetic infiltrated medially and laterally for postoperative pain control. Patient was then awoken from anesthesia and taken to the recovery unit in good condition no immediate complications from this procedure. Counts were correct. Complications: none Post-operative Condition: stable Disposition: PACU Plan for aftercare: Touchdown to partial weight-bearing in the splint with the use of an assistive device such as a walker. In 2 weeks we will have sutures removed and will be weightbear as tolerated in a boot thereafter. Keep splint dry until follow up but may put partial weight through the leg and use a walker to ambulate. Aspirin for DVT prophylaxis.
[2024-12-06] MEDS: ONDANSETRON 4 MG/2 ML INJ IV (17:01)
[2024-12-06] MEDS: TRAMADOL 50 MG TABLET PO (17:15)
== END 2024-12-06 17:41 | disposition home or self-care (01) ==
LOC: OR 15:07 → AC 16:46
PROVIDERS: PCP Family Medicine; Referring Provider Family Medicine; Visit Provider Orthopaedic Surgery Foot and Ankle Surgery
PROC: (CPT 27814; principal; 2024-12-06 14:45)
DX: S82.842A Displaced bimalleolar fracture of left lower leg, initial encounter for closed fracture (principal); G89.18 Other acute postprocedural pain; E11.9 Type 2 diabetes mellitus without complications; G62.9 Polyneuropathy, unspecified; E66.9 Obesity, unspecified; Z68.34 Body mass index [BMI] 34.0-34.9, adult; W18.30XA Fall on same level, unspecified, initial encounter; Z79.84 Long term (current) use of oral hypoglycemic drugs; Z87.891 Personal history of nicotine dependence
CPT/HCPCS: 27814; 64450; 73600; 76000; C1713; J0690; J1100; J2250; J2405; J2704; J3010

== ENCOUNTER 2024-12-10 12:21 | Emergency (ER) | payer MEDICARE, OTHER, SELFPAY ==
[2024-12-10] VITALS (12 sets, daily range): BP systolic 115–145; BP diastolic 57–64; PULSE 62–90; RESP 18; TEMP 36.2; O2SAT 96–99; BMI 36.0
--- NOTE | 2024-12-10 13:06 | EKG_ITS ---
[address] [address] Test Date: 2024-12-10 Pat Name: Naa Landry Department: Room: Gender: Female [employer]visor [employer]: JOHAN : 1950 Requested By: Order Number: [id number] Reading MD: Regan Paris MD Measurements Intervals Solo Rate: 78 P: -4 NE: 142 QRS: -12 QRSD: 68 T: 31 QT: 358 QTc: 408 Interpretive Statements Normal sinus rhythm Left ventricular hypertrophy with repolarization abnormality ( R in aVL ) Electronically Signed On 12-11-2024 13:38:43 PST by Regan Paris MD
--- NOTE | 2024-12-10 13:18 | ED.WEAKNESS ---
HPI - Weakness General Chief complaint: Weakness Stated complaint: Lathargeic. Fell out of bed this AM. Hurt RT leg. Time Seen by Provider: 12/10/24 13:06 Source: patient and family Mode of arrival: Wheelchair History of Present Illness HPI Narrative: Patient is a 74 year female history pxv-pijwdeq-[id number] diabetes nonalcoholic cirrhosis chronic kidney disease recent surgery of knee left ankle for a bimalleolar fracture presents today with weakness. She had surgery on the , she went home afterwards she has been getting up and going to [employer]. However this morning she slipped out of bed she was sitting on the side of her bed trying to transfer to a commode kind of slipped down landing on her knees. No head injury. Also reports increased sleepiness. She has been taking tramadol for pain. She does know that when she takes the pain medications least she sleeps for a long time. Son at bedside also reports that she has had ongoing tiredness sleeping well in middle of a conversation. Related Data Home Medications Medication Instructions Recorded Confirmed lactulose 10 gram/15 mL oral 10 g PO DAILY 04/21/23 12/06/24 solution (Constulose) propylene glycol 0.6 % eye drops 1 drp EYE-BOTH DAILY 05/21/23 12/06/24 (Systane Complete) propranolol 10 mg tablet 10 mg PO DAILY 12/06/24 12/06/24 Previous Rx's Medication Instructions Recorded escitalopram oxalate 5 mg tablet 5 mg PO DAILY #90 tabs 02/07/24 glimepiride 2 mg tablet 2 mg PO BID #180 tabs 02/07/24 levothyroxine 75 mcg tablet 75 mcg PO DAILY #90 tabs 02/07/24 spironolactone 100 mg tablet 100 mg PO DAILY #90 tabs 02/07/24 Disabled Parking Permit See Rx Instructions .Route 02/23/24 .COMPLEX #1 ea cyclobenzaprine 5 mg tablet 2.5 - 5 mg (0.5 - 1 x 5 mg) PO BID 06/29/24 PRN muscle spasm #30 tabs bumetanide 1 mg tablet 2 mg (2 x 1 mg) PO DAILY edema #60 10/03/24 tabs metformin 500 mg tablet 500 mg PO BID #200 tabs 10/03/24 empagliflozin 10 mg tablet 10 mg PO DAILY #90 tabs 11/24/24 (Jardiance) insulin glargine 100 unit/mL (3 10 unit (0.1 mL) SUBCUT DAILY #15 11/24/24 mL) subcutaneous pen (Lantus mL Solostar U-100 Insulin) pen needle, diabetic 29 gauge x #100 ea 11/24/24 1 (1st Tier Unifine Pentips) tramadol 50 mg tablet 50 mg PO BID PRN pain #30 tabs 11/24/24 tramadol 50 mg tablet 50 mg PO Q6H PRN pain #30 tabs 12/06/24 bumetanide 1 mg tablet 1 mg PO DAILY #30 tabs 12/10/24 Allergies Allergy/AdvReac Type Severity Reaction Status Date / Time wool Allergy Unknown Verified 12/06/24 13:34 acetaminophen [From Tylenol] AdvReac Unknown Hallucinations, Verified 12/06/24 13:34 can't sleep at night, hyper. aspirin AdvReac Unknown Stomach Verified 12/06/24 13:34 burning. codeine AdvReac Unknown Jitters, Verified 12/06/24 13:34 depression. fluoxetine AdvReac Unknown Headache, Verified 12/06/24 13:34 depression, anxiety, stomach upset. hydrocodone AdvReac Unknown Nausea and Verified 12/06/24 13:34 vomitting. ibuprofen AdvReac Unknown Gastrointestinal Verified 12/06/24 13:34 Upset Latex, Natural Rubber AdvReac Unknown Rash Verified 12/06/24 13:34 morphine AdvReac Unknown itching Verified 12/06/24 13:34 from the inside out propoxyphene [From Darvon] AdvReac Unknown Nausea Verified 12/06/24 13:34 cellulose AdvReac Unknown Cough Uncoded 12/06/24 13:34 Patient History Medical History CKD (chronic kidney disease) Low ferritin Normochromic anemia Aortic stenosis Arthritis Anemia Anxiety Neuropathy Diabetes type 2, controlled Hypothyroidism Sleep apnea Depression Mumps Measles Chicken pox Painful menstrual periods Colon polyps Cirrhosis Hypertension Surgical History Anesthesia History of tubal ligation (~1974) History of hysterectomy History of cholecystectomy (~1968) Family History Father COPD (chronic obstructive pulmonary disease) Mother Diabetes mellitus History of heart disease Hyperlipidemia Hypertension Brother Type 2 diabetes mellitus Hypertension Sister Cancer Sister Osteopenia Grandfather Cancer Grandfather Pneumonia Social History household members: none Smoking Status: Former smoker alcohol intake: never Smoking Status: Former smoker Exam Initial Vital Signs Initial Vital Signs: Vital Signs Temperature 97.1 F L 12/10/24 12:42 Pulse Rate 90 12/10/24 12:42 Respiratory Rate 18 12/10/24 12:42 Blood Pressure 135/64 12/10/24 12:42 Pulse Oximetry 98 12/10/24 12:42 Oxygen Delivery Method Room Air 12/10/24 12:42 GENERAL: Alert 74-year-old female and in no acute distress. HEENT: Head atraumatic,EOMI, pupils reactive, face symmetric, moist mucous membranes CARDIOVASCULAR: Regular rate and rhythm without murmurs, rubs or gallops. RESPIRATORY: Breath sounds equal bilaterally, no wheezes rales or rhonchi. ABDOMEN: Soft, nontender. Normoactive bowel sounds all 4 quadrants. No guarding or rebound. EXTREMITIES: Normal range of motion, no clubbing or edema. Neurovascularly intact Left lower extremity in splint distal pedal pulse intact cap refill less than 2 seconds moving toes nontender NEUROLOGICAL: Alert and oriented x4.Cranial nerves II through XII grossly intact. SKIN: Warm, dry, no laceration, no petechiae, no rashes or lesions. Course Orders Ordered: ED Orders 12/10/24 12:56 CBC Auto Diff [Complete Blood Count AUTO DIFF] Stat CMP [Comprehensive Metabolic Panel] Stat TSH [Thyroid Stimulating Hormone] Stat 12/10/24 13:06 EKG-12 Lead Stat 12/10/24 13:19 Chest [XR chest 1V] Stat 12/10/24 15:05 Urine Culture Stat Urine Microscopic Stat Discontinued Medications Furosemide (Furosemide 20 Mg Tablet) 20 mg PO NOW ONE Stop: 12/10/24 15:51 Last Admin: 12/10/24 16:18 Dose: 20 mg Documented By: QUETA Vital Signs Vital signs: Vital Signs - 8 hr 12/10/24 12:42 12/10/24 12:49 12/10/24 13:00 Temperature 97.1 F L Pulse Rate 90 84 71 Respiratory Rate 18 Blood Pressure 135/64 Pulse Oximetry 98 98 99 Oxygen Delivery Method Room Air 12/10/24 13:01 12/10/24 13:01 12/10/24 13:30 Temperature Pulse Rate 77 65 Respiratory Rate Blood Pressure 145/57 H Pulse Oximetry 98 96 Oxygen Delivery Method 12/10/24 13:31 12/10/24 13:31 12/10/24 14:00 Temperature Pulse Rate 70 Respiratory Rate Blood Pressure 122/57 L 125/58 L Pulse Oximetry 98 Oxygen Delivery Method 12/10/24 14:00 12/10/24 14:30 12/10/24 14:31 Temperature Pulse Rate 70 62 67 Respiratory Rate Blood Pressure Pulse Oximetry 97 99 98 Oxygen Delivery Method 12/10/24 14:31 12/10/24 15:05 12/10/24 15:05 Temperature Pulse Rate 82 Respiratory Rate Blood Pressure 115/58 L 121/57 L Pulse Oximetry 98 Oxygen Delivery Method 12/10/24 15:30 12/10/24 16:00 Temperature Pulse Rate 67 69 Respiratory Rate Blood Pressure 119/63 Pulse Oximetry 98 97 Oxygen Delivery Method MDM - Weakness Lab Data 12/10/24 12:56 12/10/24 12:56 Labs: Lab Results 12/10/24 12/10/24 Range/Units 12:56 15:05 WBC 5.4 (4.5-11.0) X10^3/uL RBC 2.95 L (4.0-5.2) X10^6/uL Hgb 7.7 L (12.0-16.0) g/dL Hct 24.5 L (36-46) % MCV 83.2 (80-100) fL MCH 26.0 (26-34) PG MCHC 31.2 (30-36) % RDW 17.5 H (11.6-14.8) % Plt Count 134 L (150-400) X10^3/uL Neut % (Auto) 79.7 H (50-75) % Lymph % (Auto) 10.4 L (25-40) % [place] % (Auto) 7.9 (3-14) % Eos % (Auto) 1.6 L (2-4) % Baso % (Auto) 0.4 (0-2) % Neut # (Auto) 4300 (6756-2665) /uL Lymph # (Auto) 600 L (4783-1840) /uL [place] # (Auto) 400 (0-900) /uL Eos # (Auto) 100 (0-450) /uL Baso # (Auto) 0 (0-100) /uL Sodium 133 L (137-145) mmol/L Potassium 5.5 H (3.4-5.1) mmol/L Chloride 104 (98-107) mmol/L Carbon Dioxide 21 L (22-32) mmol/L BUN 24 H (7-17) mg/dL Creatinine 1.02 (0.52-1.04) mg/dL Estimated GFR 57 L (>60) mL/min BUN/Creatinine Ratio 23.5 H (6-22) Glucose 197 H (80-110) mg/dL Calcium 9.9 (8.4-10.2) mg/dL Total Bilirubin 1.3 (0.2-1.3) mg/dL AST 48 H (14-36) IU/L ALT 32 (<35) IU/L Alkaline Phosphatase 156 H (38-126) U/L Total Protein 6.7 (6.3-8.2) g/dL Albumin 3.6 (3.5-5.0) g/dL Globulin 3.1 (1.7-4.1) g/dL Albumin/Globulin Ratio 1.2 (1.0-2.8) TSH 3.41 (0.47-4.68) uIU/mL Urine RBC None seen (0-5/HPF) Urine WBC 5-10/hpf H (0-5/HPF) Ur Squamous Epith Cells None seen (0-5/HPF) Urine Bacteria None seen (None) Ur Culture Indicated? Specimen cultured Vol Urine Centrifuged 10ml (spun) Urine Dip Bedside Urine Glucose Negative Bedside Urine Bilirubin - Negative Bedside Urine Ketone - Negative Urine Specific [place] 1.015 Bedside Urine Occult Blood - Negative Bedside Urine pH 6.0 Bedside Urine Protein - Negative Bedside Urine Urobilinogen - Negative Bedside Urine Nitrite - Negative Bedside Urine Leukocytes - Negative Esterase Imaging Data Chest x-ray: Radiologist Impression: PROCEDURE: XR CHEST 1V INDICATIONS: weakness TECHNIQUE: One view of the chest was acquired. COMPARISON: None. FINDINGS: Surgical changes and devices: None. Lungs and pleura: Lungs are clear. No pleural effusions or pneumothorax. Mediastinum: Mediastinal contours appear normal. Heart size is normal. Bones and chest wall: No suspicious bony lesions. Overlying soft tissues appear unremarkable. IMPRESSION: No acute cardiopulmonary abnormality is seen. Dictated by: Bette Guido M.D. on 12/10/2024 at 13:19 ECG Data Attestation: I personally reviewed and interpreted this ECG as follows: Prior ECG tracings: not available for review Interpretation: Sinus rhythm rate 78 OR interval 142 QRS [address] changes MDM Narrative Medical decision making narrative: MDM CC: Fall tiredness Complicating co-morbidities: Anemia, diabetes, depression gout hypothyroid, nonalcoholic cirrhosis Data collected from: Son Medical records reviewed: Recent bimalleolar ankle surgery, ED visit 11/22/2024 Differential considered: Infection myxedema coma medication reaction, hepatic encephalopathy Exam documented above, pertinent findings include: Awake alert 74-year-old left lower extremity in cast no evidence of compartment syndrome moving toes Lab Test results independently reviewed as above. Pertinent findings: WBC 5.4 hemoglobin 7.7 previously 7.7 in September, hematocrit 24.5 previously 23.8 platelets 134 Sodium 133 potassium 5 5 chloride 104 carbon dioxide 21 BUN 24 creatinine 1.0 glucose 197 Urinalysis negative for infection Independently reviewed EKG as above Sinus rhythm rate 78 OR interval 142 Imaging studies independently reviewed: Chest x-ray no acute cardiopulmonary process Consultations: None Treatments: None Re-evaluations: Patient remains awake alert oriented Discussion: Patient is 74-year-old female presents today with increased sleepiness though she has chronic sleepiness. Seems to be related to tramadol every time she takes tramadol she sleeps. Today she had fall which was really more of a slide off the bed. She does have multiple episodes where she is talking and then falls asleep this has been going on for decades according to the son however does seem to be a little bit more now that she is taking tramadol. I do think that this is tramadol related. No evidence of infection chest x-ray within normal limits urinalysis was negative. Bilirubin and liver enzymes stable and no significant elevation. She remains awake alert appropriate ammonia was not checked because it does not seem clinically appropriate, low suspicion for hepatic encephalopathy because she has periods of complete lucency. She also continues to take her lactulose. At this time recommended that she stop taking tramadol take only if she needs for severe pain otherwise take Tylenol. All questions have been answered and addressed Discharge Plan Departure Patient Disposition: Home Clinical Impression: Medication reaction, Anemia, Acute hyperkalemia Instructions: Anemia Activity Restrictions/Additional Instructions: *You have been diagnosed with anemia elevated potassium medication reaction *What to do: At this time I think your increased tiredness is likely due to tramadol use. If you do not need it for pain then please stop taking it. If you do need it once in awhile it at nighttime I would take it then to help with sleep. Otherwise please avoid At this time please see your GI doctor as scheduled this week. You should have your potassium rechecked this week as well *Continue to take medications as directed Bumex 1 mg once a day for 3 days then stop *Follow up with your primary care provider in 2-3 days or call [phone] *Return to ER if you should have increasing weakness falling pain [or] any new, worsening or concerning symptoms Prescriptions: New bumetanide 1 mg tablet 1 mg PO DAILY Qty: 30 0RF No Action Disabled Parking Permit See Rx Instructions .ROUTE .COMPLEX Qty: 1 0RF Rx Instructions: Permanent placard Systane Complete 0.6 % drops 1 drp EYE-BOTH DAILY levothyroxine 75 mcg tablet 75 mcg PO DAILY Qty: 90 3RF escitalopram oxalate 5 mg tablet 5 mg PO DAILY Qty: 90 3RF glimepiride 2 mg tablet 2 mg PO BID Qty: 180 3RF Hold Instructions: ozempic spironolactone 100 mg tablet 100 mg PO DAILY Qty: 90 3RF insulin glargine [Lantus Solostar U-100 Insulin] 100 unit/mL (3 mL) insulin pen 10 unit SUBCUT DAILY Qty: 15 5RF Patient Comments: hasn't started it yet tramadol 50 mg tablet 50 mg PO BID PRN (Reason: pain) Qty: 30 0RF (DME) pen needle, diabetic [1st Tier Unifine Pentips] 29 gauge x 1/2 needle See Rx Instructions .Route Qty: 100 3RF Rx Instructions: As directed Jardiance 10 mg tablet 10 mg PO DAILY Qty: 90 3RF Patient Comments: has not started it yet lactulose [Constulose] 10 gram/15 mL solution 10 g PO DAILY cyclobenzaprine 5 mg tablet 2.5 - 5 mg PO BID PRN (Reason: muscle spasm) Qty: 30 1RF metformin 500 mg tablet 500 mg PO BID Qty: 200 3RF bumetanide 1 mg tablet 2 mg PO DAILY Qty: 60 11RF propranolol 10 mg tablet 10 mg PO DAILY tramadol 50 mg tablet 50 mg PO Q6H PRN (Reason: pain) Qty: 30 0RF Rx Instructions: postop exempt Referrals: Mustapha Kapadia DO [Primary Care Provider] - Stand Alone Forms: Patient Portal/API/Survey
[2024-12-10 13:34] LABS: Add Manual Diff / Slide Review NO; Basophils Absolute Auto 0 /uL (0-100); Basophils Percent Auto 0.4 % (0-2); Eosinophils Absolute Auto 100 /uL (0-450); Eosinophils Percent Auto 1.6 % (2-4); Hematocrit 24.5 % (36-46); Hemoglobin 7.7 g/dL (12.0-16.0); Lymphocytes Absolute Auto 600 /uL (1100-4500); Lymphocytes Percent Auto 10.4 % (25-40); Mean Corpuscular HGB Conc 31.2 % (30-36); Mean Corpuscular Volume 83.2 fL (80-100); Monocytes Absolute Auto 400 /uL (0-900); Monocytes Percent Auto 7.9 % (3-14); Neutrophils Absolute Auto 4300 /uL (1500-7000); Neutrophils Percent Auto 79.7 % (50-75); Platelet Count 134 X10^3/uL (150-400); Red Blood Cell Count 2.95 X10^6/uL (4.0-5.2); Red Cell Distribution Width 17.5 % (11.6-14.8); White Blood Cell Count 5.4 X10^3/uL (4.5-11.0)
[2024-12-10 13:47] LABS: Alanine Aminotransferase 32 IU/L (<35); Albumin 3.6 g/dL (3.5-5.0); Albumin Globulin Ratio 1.2 (1.0-2.8); Alkaline Phosphatase 156 U/L (38-126); Aspartate Aminotransferase 48 IU/L (14-36); BUN Creatinine Ratio 23.5 (6-22); Bilirubin Total 1.3 mg/dL (0.2-1.3); Blood Urea Nitrogen 24 mg/dL (7-17); Calcium 9.9 mg/dL (8.4-10.2); Carbon Dioxide 21 mmol/L (22-32); Chloride 104 mmol/L (98-107); Estimated Glomerular Filt Rate 57 mL/min (>60); Globulin 3.1 g/dL (1.7-4.1); Glucose 197 mg/dL (80-110); HEMOLYSIS 21 (0-50); Sodium 133 mmol/L (137-145); Total Protein 6.7 g/dL (6.3-8.2)
[2024-12-10 13:49] LABS: Potassium 5.5 mmol/L (3.4-5.1)
[2024-12-10 14:17] LABS: Thyroid Stimulating Hormone 3.41 uIU/mL (0.47-4.68)
[2024-12-10 15:39] LABS: Bacteria Urine None Seen; Culture Indicated Urine Specimen Cultured; RBC Urine None Seen (0-5/HPF); Squamous Epithelial Cell Urine None Seen (0-5/HPF); Urine Volume 10mL (spun); WBC Urine 5-10/HPF (0-5/HPF)
[2024-12-10] MEDS: FUROSEMIDE 20 MG TABLET PO (16:18)
== END 2024-12-10 16:25 | disposition home or self-care (01) ==
PROVIDERS: Emergency Provider Emergency Medicine; PCP Family Medicine; Referring Provider Family Medicine
DX: D64.9 Anemia, unspecified (principal); E87.5 Hyperkalemia; W06.XXXA Fall from bed, initial encounter; T50.905A Adverse effect of unspecified drugs, medicaments and biological substances, initial encounter; R07.9 Chest pain, unspecified
CPT/HCPCS: 71045; 80053; 81003; 81015; 84443; 85025; 87086; 93005; 93010; 99283; 99284

== ENCOUNTER 2025-02-07 15:31 | Emergency (ER) | payer MEDICARE, OTHER, SELFPAY ==
[2025-02-07] VITALS (29 sets, daily range): BP systolic 105–138; BP diastolic 51–61; PULSE 82–97; RESP 18–29; TEMP 36.6–36.8; O2SAT 95–100
[2025-02-07 17:09] LABS: RBC Urine None Seen (0-5/HPF); Urine Volume 10mL (spun); WBC Urine 10-30/HPF (0-5/HPF)
[2025-02-07 17:10] LABS: Bacteria Urine Many (>30); Culture Indicated Urine Specimen Cultured; Squamous Epithelial Cell Urine 1-5 /HPF (0-5/HPF)
--- NOTE | 2025-02-07 18:07 | ED_ITS ---
HPI - Abdominal Pain General Chief Complaint: Abdominal Pain Stated Complaint: sent by PCP, bloating and edema Time Seen by Provider: 02/07/25 18:06 Source: patient and family Mode of arrival: Wheelchair History of Present Illness HPI narrative: 74-year-old female with a past medical history of diabetes hypothyroidism hypertension cirrhosis Anemia,comes into the ED from PCP for evaluation of lower extremity edema states that it feels like it is going up into her abdomen, does admit to intermittent nausea, she states that she had a paracentesis 5 years ago but has not had 1 done since then. She states that cirrhosis was not due to alcohol abuse. Patient states that she has been feeling tired short of breath associated with the symptoms, she denies any bright red blood per rectum however states that she did notice some darker stool few days ago. She states that she is never needed a blood transfusion previously just required iron infusions but she has not had this recently. Denies any other symptoms such as headache visual disturbances chest pain fever chills nausea vomiting or any other GI/ symptoms at this time. Related Data Home Medications Medication Instructions Recorded Confirmed propylene glycol 0.6 % eye drops 1 drp EYE-BOTH DAILY 05/21/23 12/27/24 (Systane Complete) propranolol 10 mg tablet 10 mg PO DAILY 12/06/24 12/27/24 Previous Rx's Medication Instructions Recorded escitalopram oxalate 5 mg tablet 5 mg PO DAILY #90 tabs 02/07/24 glimepiride 2 mg tablet 2 mg PO BID #180 tabs 02/07/24 levothyroxine 75 mcg tablet 75 mcg PO DAILY #90 tabs 02/07/24 spironolactone 100 mg tablet 100 mg PO DAILY #90 tabs 02/07/24 Disabled [address]ing Permit See Rx Instructions .Route 02/23/24 .COMPLEX #1 ea cyclobenzaprine 5 mg tablet 2.5 - 5 mg (0.5 - 1 x 5 mg) PO BID 06/29/24 PRN muscle spasm #30 tabs bumetanide 1 mg tablet 2 mg (2 x 1 mg) PO DAILY edema #60 10/03/24 tabs metformin 500 mg tablet 500 mg PO BID #200 tabs 10/03/24 insulin glargine 100 unit/mL (3 10 unit (0.1 mL) SUBCUT DAILY #15 01/03/25 mL) subcutaneous pen (Lantus mL Solostar U-100 Insulin) tramadol 50 mg tablet 50 mg PO BID PRN pain #30 tabs 11/24/24 tramadol 50 mg tablet 50 mg PO Q6H PRN pain #30 tabs 12/06/24 bumetanide 1 mg tablet 1 mg PO DAILY #30 tabs 12/10/24 insulin lispro 100 unit/mL 5 unit (0.05 mL) SUBCUT TID #15 mL 12/27/24 subcutaneous pen (Humalog KwikPen (U-100) Insulin) pen needle, diabetic 29 gauge x #300 ea 12/27/2411/23 (1st Tier Unifine Pentips) lactulose 10 gram/15 mL oral 30 ml PO DAILY #946 mL 01/17/25 solution cephalexin 500 mg capsule 500 mg PO BID 7 days #14 caps 02/08/25 Allergies Allergy/AdvReac Type Severity Reaction Status Date / Time wool Allergy Unknown Verified 12/27/24 12:57 acetaminophen [From Tylenol] AdvReac Unknown Hallucinations, Verified 12/27/24 12:57 can't sleep at night, hyper. aspirin AdvReac Unknown Stomach Verified 12/27/24 12:57 burning. codeine AdvReac Unknown Jitters, Verified 12/27/24 12:57 depression. fluoxetine AdvReac Unknown Headache, Verified 12/27/24 12:57 depression, anxiety, stomach upset. hydrocodone AdvReac Unknown Nausea and Verified 12/27/24 12:57 vomitting. ibuprofen AdvReac Unknown Gastrointestinal Verified 12/27/24 12:57 Upset Latex, Natural Rubber AdvReac Unknown Rash Verified 12/27/24 12:57 morphine AdvReac Unknown itching Verified 12/27/24 12:57 from the inside out propoxyphene [From Darvon] AdvReac Unknown Nausea Verified 12/27/24 12:57 cellulose AdvReac Unknown Cough Uncoded 12/27/24 12:57 Review of Systems Review of Systems Narrative: General: Positive generalized weakness Denies fever, chills, weight loss HEENT: Denies headache, eye drainage, eye irritation, head trauma, sore throat, voice change Cardiovascular: Denies any chest pain, palpitations, tachycardia Respiratory: Positive shortness of breath, denies cough, wheeze, stridor GI/: Positive abdominal pain, denies nausea, vomiting, diarrhea, bright red blood per rectum, melanotic stools, urinary frequency, urinary retention, dysuria, hematuria MSK: Denies any joint pain, muscle pains, swelling Skin: Denies any rashes, lesions, discoloration Neuro: Denies any headache, lightheadedness, dizziness, fainting, weakness Psych: Denies SI/HI Patient History Medical History CKD (chronic kidney disease) Low ferritin Normochromic anemia Aortic stenosis Arthritis Anemia Anxiety Neuropathy Diabetes type 2, controlled Hypothyroidism Sleep apnea Depression Mumps Measles Chicken pox Painful menstrual periods Colon polyps Cirrhosis Hypertension Surgical History Anesthesia History of tubal ligation (~1974) History of hysterectomy History of cholecystectomy (~1968) Family History Father COPD (chronic obstructive pulmonary disease) Mother Diabetes mellitus History of heart disease Hyperlipidemia Hypertension Brother Type 2 diabetes mellitus Hypertension Sister Cancer Sister Osteopenia Grandfather Cancer Grandfather Pneumonia Social History marital status: unknown details: Pt. lives in a Independent Care Facility. household members: none lives independently: Yes caregiver/support person: Yes occupational status: previously employed Smoking Status: Former smoker alcohol intake: never substance use type: does not use Smoking Status: Former smoker Exam Narrative Exam Narrative: General: Cooperative, comfortable, well-developed, not in acute distress HEENT: Normocephalic, atraumatic, PERRLA, normal sclera, eyelids normal, Neck: Active full range of motion, atraumatic Chest: Normal to inspection, negative crepitus, no overlying erythema ecchymosis Respiratory: Normal respiratory effort, not in acute respiratory distress, clear to auscultation bilaterally negative cough, wheeze, tachypnea, rhonchi, rales Cardiology: Regular rate rhythm negative gallop, murmur, rubs GI/: Normal to inspection, soft, nonrigid, no tenderness to palpation, exam deferred MSK: Full range of active range of motion of all 4 extremities, atraumatic Skin: No rashes lesions noted Neuro: Alert awake oriented x3, moves all 4 extremities spontaneously, cranial nerves intact, able to answer all questions appropriately follows commands appropriately Psych: Cooperative, negative suicidal or homicidal ideations Initial Vital Signs Initial Vital Signs: Vital Signs Temperature 97.9 F 02/07/25 15:36 Pulse Rate 92 H 02/07/25 15:36 Respiratory Rate 20 02/07/25 15:36 Blood Pressure 138/61 02/07/25 15:36 Pulse Oximetry 99 02/07/25 15:36 Oxygen Delivery Method Room Air 02/07/25 15:36 Course Orders Ordered: ED Orders 02/07/25 18:09 CT abdomen pelvis w con Stat 02/07/25 18:10 CXR [XR chest 1V] Stat EKG-12 Lead Stat 02/07/25 18:40 Ammonia (NH3) Stat Complete Blood Count AUTO DIFF Stat Comprehensive Metabolic Panel Stat Lactate (Lactic Acid) Stat Lipase Stat MAG [Magnesium] Stat NT-proBNP (BNP-Adult 18+) Stat PT [Prothrombin Time INR] Stat PTT Partial Thromboplastin Andrea Stat Troponin & CK Cardiac Panel Stat 02/07/25 19:07 Packed Cells Stat Type and Screen Stat Discontinued Medications Furosemide (Furosemide 40 Mg/4 Ml Vial) 40 mg IV NOW ONE Stop: 02/07/25 23:41 Last Admin: 02/07/25 23:50 Dose: 40 mg Documented By: CHRISTOPHER Vital Signs Vital signs: Vital Signs - 8 hr 02/07/25 19:00 02/07/25 19:30 02/07/25 20:00 Temperature Pulse Rate 96 H 97 H 90 Respiratory Rate 24 Blood Pressure Pulse Oximetry 96 Oxygen Delivery Method Room Air 02/07/25 20:21 02/07/25 20:21 02/07/25 20:30 Temperature Pulse Rate 97 H 96 H Respiratory Rate 23 Blood Pressure 110/59 L Pulse Oximetry 97 97 Oxygen Delivery Method 02/07/25 20:30 02/07/25 20:42 02/07/25 20:42 Temperature 98.2 F Pulse Rate 95 H Respiratory Rate 25 H Blood Pressure 117/54 L 105/52 L Pulse Oximetry 96 Oxygen Delivery Method 02/07/25 20:51 02/07/25 20:55 02/07/25 20:55 Temperature Pulse Rate 95 H Respiratory Rate 18 Blood Pressure 116/56 L 110/61 Pulse Oximetry 97 Oxygen Delivery Method 02/07/25 21:00 02/07/25 21:00 02/07/25 21:01 Temperature 98.2 F Pulse Rate 94 H 93 H Respiratory Rate 24 22 Blood Pressure 116/60 116/60 Pulse Oximetry 97 Oxygen Delivery Method 02/07/25 21:05 02/07/25 21:05 02/07/25 21:30 Temperature Pulse Rate 93 H 95 H Respiratory Rate 23 27 H Blood Pressure 124/58 L Pulse Oximetry 95 98 Oxygen Delivery Method 02/07/25 21:57 02/07/25 22:00 02/07/25 22:00 Temperature Pulse Rate 92 H Respiratory Rate 25 H Blood Pressure 107/53 L 113/56 L Pulse Oximetry 98 Oxygen Delivery Method 02/07/25 22:15 02/07/25 22:15 02/07/25 22:30 Temperature Pulse Rate 92 H 92 H Respiratory Rate 18 Blood Pressure 116/58 L Pulse Oximetry 97 100 Oxygen Delivery Method 02/07/25 22:30 02/07/25 22:45 02/07/25 22:45 Temperature Pulse Rate 92 H Respiratory Rate 20 Blood Pressure 119/55 L 129/57 L Pulse Oximetry 100 Oxygen Delivery Method 02/07/25 23:00 02/07/25 23:00 02/07/25 23:13 Temperature 98.2 F Pulse Rate 93 H 92 H Respiratory Rate 22 Blood Pressure 121/59 L 121/59 L Pulse Oximetry 98 Oxygen Delivery Method 02/07/25 23:16 02/07/25 23:16 02/07/25 23:30 Temperature 98.1 F Pulse Rate 94 H 83 Respiratory Rate 18 Blood Pressure 131/58 L 128/60 Pulse Oximetry 98 Oxygen Delivery Method 02/07/25 23:30 02/07/25 23:30 02/07/25 23:34 Temperature Pulse Rate 92 H 84 Respiratory Rate 25 H Blood Pressure 117/58 L Pulse Oximetry 99 98 Oxygen Delivery Method 02/07/25 23:34 02/07/25 23:45 02/07/25 23:45 Temperature Pulse Rate 82 Respiratory Rate 25 H Blood Pressure 128/60 131/57 L Pulse Oximetry 98 Oxygen Delivery Method 02/08/25 00:00 02/08/25 00:00 02/08/25 00:15 Temperature Pulse Rate 85 82 Respiratory Rate 24 24 Blood Pressure 118/56 L Pulse Oximetry 98 98 Oxygen Delivery Method 02/08/25 00:15 02/08/25 00:30 02/08/25 00:30 Temperature Pulse Rate 92 H Respiratory Rate 27 H Blood Pressure 124/56 L 127/59 L Pulse Oximetry 97 Oxygen Delivery Method 02/08/25 00:45 02/08/25 00:45 02/08/25 01:00 Temperature Pulse Rate 92 H 81 Respiratory Rate 22 25 H Blood Pressure 113/56 L Pulse Oximetry 98 98 Oxygen Delivery Method 02/08/25 01:00 02/08/25 01:15 02/08/25 01:15 Temperature Pulse Rate 85 Respiratory Rate 27 H Blood Pressure 117/55 L 120/59 L Pulse Oximetry 99 Oxygen Delivery Method 02/08/25 01:30 02/08/25 01:30 Temperature 98.5 F Pulse Rate 83 Respiratory Rate 24 Blood Pressure 119/59 L Pulse Oximetry 98 Oxygen Delivery Method MDM - Abdominal Pain Differential Diagnosis Differential diagnosis: Likely abdominal pain, acute appendicitis, constipation, diverticulitis, gastroenteritis, small bowel obstruction and other (Electrolyte abnormality, pneumonia, ACS) Lab Data 02/07/25 18:40 02/07/25 18:40 Labs: Lab Results 02/07/25 02/07/25 02/07/25 Range/Units 16:47 18:40 19:07 WBC 4.5 (4.5-11.0) X10^3/uL RBC 2.07 L (4.0-5.2) X10^6/uL Hgb 5.4 L* (12.0-16.0) g/dL Hct 17.1 L* (36-46) % MCV 82.8 (80-100) fL MCH 26.1 (26-34) PG MCHC 31.6 (30-36) % RDW 18.9 H (11.6-14.8) % Plt Count 133 L (150-400) X10^3/uL Neut % (Auto) 76.3 H (50-75) % Lymph % (Auto) 12.6 L (25-40) % [place] % (Auto) 8.6 (3-14) % Eos % (Auto) 1.8 L (2-4) % Baso % (Auto) 0.7 (0-2) % Neut # (Auto) 3500 (8303-2414) /uL Lymph # (Auto) 600 L (2343-9766) /uL [place] # (Auto) 400 (0-900) /uL Eos # (Auto) 100 (0-450) /uL Baso # (Auto) 0 (0-100) /uL PT 14.2 H (9.4-12.5) SECONDS INR 1.3 (0.9-1.3) APTT 26 (25.1-36.5) SECONDS Sodium 132 L (137-145) mmol/L Potassium 4.7 (3.4-5.1) mmol/L Chloride 105 (98-107) mmol/L Carbon Dioxide 20 L (22-32) mmol/L BUN 24 H (7-17) mg/dL Creatinine 1.10 H (0.52-1.04) mg/dL Estimated GFR 52 L (>60) mL/min BUN/Creatinine Ratio 21.8 (6-22) Glucose 236 H (80-110) mg/dL Lactate 2.2 H (0.7-2.1) mmol/L Calcium 9.3 (8.4-10.2) mg/dL Magnesium 1.9 (1.6-2.3) mg/dL Total Bilirubin 1.6 H (0.2-1.3) mg/dL AST 47 H (14-36) IU/L ALT 33 (<35) IU/L Alkaline Phosphatase 137 H (38-126) U/L Ammonia 14 (9-30) umol/L Total Creatine Kinase 67 (30-135) U/L Troponin I < 0.012 (0.01-0.034) ng/mL NT-Pro-B Natriuret Pep 1020 H (<450) pg/mL Total Protein 6.4 (6.3-8.2) g/dL Albumin 3.3 L (3.5-5.0) g/dL Globulin 3.1 (1.7-4.1) g/dL Albumin/Globulin Ratio 1.1 (1.0-2.8) Lipase 115 (23-300) U/L Urine RBC None seen (0-5/HPF) Urine WBC 10-30/hpf H (0-5/HPF) Ur Squamous Epith Cells 1-5 /hpf (0-5/HPF) Urine Bacteria Many (>30) H (None) Ur Culture Indicated? Specimen cultured Vol Urine Centrifuged 10ml (spun) Blood Type O Positive Antibody Screen Negative Crossmatch See Detail 02/07/25 Range/Units 21:15 WBC (4.5-11.0) X10^3/uL RBC (4.0-5.2) X10^6/uL Hgb (12.0-16.0) g/dL Hct (36-46) % MCV (80-100) fL MCH (26-34) PG MCHC (30-36) % RDW (11.6-14.8) % Plt Count (150-400) X10^3/uL Neut % (Auto) (50-75) % Lymph % (Auto) (25-40) % [place] % (Auto) (3-14) % Eos % (Auto) (2-4) % Baso % (Auto) (0-2) % Neut # (Auto) (4740-4510) /uL Lymph # (Auto) (4078-0939) /uL [place] # (Auto) (0-900) /uL Eos # (Auto) (0-450) /uL Baso # (Auto) (0-100) /uL PT (9.4-12.5) SECONDS INR (0.9-1.3) APTT (25.1-36.5) SECONDS Sodium (137-145) mmol/L Potassium (3.4-5.1) mmol/L Chloride (98-107) mmol/L Carbon Dioxide (22-32) mmol/L BUN (7-17) mg/dL Creatinine (0.52-1.04) mg/dL Estimated GFR (>60) mL/min BUN/Creatinine Ratio (6-22) Glucose (80-110) mg/dL Lactate 1.8 (0.7-2.1) mmol/L Calcium (8.4-10.2) mg/dL Magnesium (1.6-2.3) mg/dL Total Bilirubin (0.2-1.3) mg/dL AST (14-36) IU/L ALT (<35) IU/L Alkaline Phosphatase (38-126) U/L Ammonia (9-30) umol/L Total Creatine Kinase (30-135) U/L Troponin I (0.01-0.034) ng/mL NT-Pro-B Natriuret Pep (<450) pg/mL Total Protein (6.3-8.2) g/dL Albumin (3.5-5.0) g/dL Globulin (1.7-4.1) g/dL Albumin/Globulin Ratio (1.0-2.8) Lipase (23-300) U/L Urine RBC (0-5/HPF) Urine WBC (0-5/HPF) Ur Squamous Epith Cells (0-5/HPF) Urine Bacteria (None) Ur Culture Indicated? Vol Urine Centrifuged Blood Type Antibody Screen Crossmatch Point of care testing: Urine Dip Bedside Urine Glucose 250 mg/dl Bedside Urine Bilirubin - Negative Bedside Urine Ketone - Negative Urine Specific [place] 1.020 Bedside Urine Occult Blood - Negative Bedside Urine pH 5.5 Bedside Urine Protein - Negative Bedside Urine Urobilinogen - Negative Bedside Urine Nitrite - Negative Bedside Urine Leukocytes +++ 500 Esterase Imaging Data Chest x-ray: Radiologist's Impression: [address] [address] XRay Report Signed Patient: Naa Landry MR#: [id number] : 1950 Acct:[id number] Age/Sex: 74 / F Date of Service: 02/07/25 Loc: ED Accession Number: [id number] Procedure: XR chest 1V Ordering Provider: Jarek Mckinnon D.O. PROCEDURE: XR CHEST 1V INDICATIONS: lower leg edema TECHNIQUE: One view of the chest was acquired. COMPARISON: [facility], , XR CHEST 1V, 12/10/2024, 13:25. FINDINGS: Surgical changes and devices: None. Lungs and pleura: No pneumothorax. Small left pleural effusion. Mild pulmonary edema. Low lung volumes. Mediastinum: Mediastinal contours appear normal. Heart size is normal. Bones and chest wall: No suspicious bony lesions. Overlying soft tissues appear unremarkable. IMPRESSION: Left pleural effusion and mild pulmonary edema. CT scan - abdomen/pelvis: Radiologist's Impression: [address] [address] [address] Scan Report Signed Patient: Naa Landry MR#: [id number] : 1950 Acct:[id number] Age/Sex: 74 / F Date of Service: 02/07/25 Loc: ED Accession Number: [id number] Procedure: CT abdomen pelvis w con Ordering Provider: Jarek cMkinnon D.O. PROCEDURE: CT ABDOMEN PELVIS W CON INDICATIONS: abd distension, hx of cirrhosis TECHNIQUE: After the administration of intravenous contrast, axial sections acquired from the lung bases to the pubic symphysis. Coronal and sagittal reformats were performed. For radiation dose reduction, the following was used: automated exposure control, adjustment of mA and/or kV according to patient size. COMPARISON: None. FINDINGS: Image quality: Diagnostic. Lower Chest: Small left pleural effusion.. ABDOMEN: Liver: No solid mass. Cirrhosis Gallbladder: Surgically absent Biliary ducts: No biliary dilation. Pancreas: No ductal dilation. Spleen: Size is within normal limits. Adrenal Glands: No adrenal nodules. Kidneys and Ureters: No hydronephrosis. No solid mass. No complex renal cystic lesion which requires follow up. Stomach and Bowel: Normal colonic caliber, without significant wall thickening. Peritoneum: Large volume ascites. No free air. Ventral Wall: Fat containing umbilical hernia. Anasarca Abdominal Nodes: No retroperitoneal or mesenteric adenopathy by size criteria. Vessels: Aorta and inferior vena cava are normal in size. PELVIS: Pelvic Organs: Unremarkable. Bladder: No bladder wall thickening, accounting for underdistention. Pelvic Nodes: No enlarged lymph nodes. Miscellaneous: No inguinal hernias are seen. Bones: No aggressive osseous abnormality. IMPRESSION: Cirrhosis with large volume ascites, small left pleural effusion and anasarca. ECG Data Interpretation: EKG interpreted ED physician sinus tachycardia 101 beats per minute QTC [address] changes no STEMI MDM Narrative Medical decision making narrative: Patient is a 74-year-old female with a past medical history of diabetes, hypothyroidism, hypertension, nonalcoholic cirrhosis, anemia, comes into the ED for evaluation of abdominal distention, generalized weakness as well as lower extremity swelling edema ongoing and persistent for the past several weeks to months. She states that she has had a history of needing a paracentesis approximately 8-10 years ago. She states that she does have an appointment with her GI doctor in March 12, 2025. Patient had lab work imaging performed here in the emergency department. CT scan showing large volume of ascites however no other acute findings. CT scan small amount of left-sided pleural effusion however patient not requiring any supplemental oxygen. Patient lab work did show a significant anemia of 5.4, patient did receive 2 units PRBC here in the emergency department. Review of records does show patient with a history of chronic anemia most likely anemia of chronic disease secondary to her history of cirrhosis of the liver, otherwise lab work without any leukocytosis, creatinine 1.10, AST 47, ALT 33, alk-phos 137, troponin negative, BNP slightly elevated at 1020 albumin low at 3.3 urinalysis is consistent with acute urinary tract infection. Given the fact that patient not requiring any supplemental oxygen we will hold off on paracentesis at this time, instructed patient to follow up with her primary care and glove printer to schedule paracentesis. 1930: Consent obtained for blood transfusion, did do fecal occult test, Hemoccult negative units PRBC ordered 0105: Patient was re-evaluated no new complaints at this time, did order 40 mg IV Lasix given patient with pleural effusion on chest x-ray as well as large volume of ascites in the abdomen. However patient is still remaining stable not requiring any supplemental oxygen. She is almost complete with her 2nd unit of PRBC. We will continue to monitor 0240: Patient remains asymptomatic still not requiring any supplemental oxygen, patient was instructed to follow up with GI and her primary care doctor to schedule a paracentesis, strict return precautions given she verbalized understanding of this and agrees to being discharged home with outpatient follow up Discharge Plan Departure Patient Disposition: Home Clinical Impression: Anemia, Abdominal ascites, Acute UTI Instructions: DI for Ascites Activity Restrictions/Additional Instructions: Please follow up with primary care and Gastroenterology to schedule your paracentesis Please read the discharge instructions sheet carefully and bring all papers to all doctor follow-up visits, as it may contain information that your doctor may want to see. Disease processes change and evolve, if your symptoms worsen or if you develop any new symptoms that are concerning to you please return for evaluation. Your evaluation today does not show any evidence of any life- threatening/serious illnesses requiring admission to the hospital or surgery. Please follow-up with your doctor for re-evaluation in approximately 1 day. Seek immediate medical attention for any worrisome symptoms. *If you do not have a primary care provider please contact the [facility] Resource line at [phone]. They will ask some questions about your medical history and help get you set up with a doctor in the community. Prescriptions: New cephalexin 500 mg capsule 500 mg PO BID 7 Days Qty: 14 0RF No Action Disabled Parking Permit See Rx Instructions .ROUTE .COMPLEX Qty: 1 0RF Rx Instructions: Permanent placard lactulose 10 gram/15 mL solution 30 ml PO DAILY Qty: 946 3RF Systane Complete 0.6 % drops 1 drp EYE-BOTH DAILY levothyroxine 75 mcg tablet 75 mcg PO DAILY Qty: 90 3RF escitalopram oxalate 5 mg tablet 5 mg PO DAILY Qty: 90 3RF glimepiride 2 mg tablet 2 mg PO BID Qty: 180 3RF Hold Instructions: ozempic spironolactone 100 mg tablet 100 mg PO DAILY Qty: 90 3RF insulin glargine [Lantus Solostar U-100 Insulin] 100 unit/mL (3 mL) insulin pen 10 unit SUBCUT DAILY Qty: 15 5RF Patient Comments: hasn't started it yet tramadol 50 mg tablet 50 mg PO BID PRN (Reason: pain) Qty: 30 0RF cyclobenzaprine 5 mg tablet 2.5 - 5 mg PO BID PRN (Reason: muscle spasm) Qty: 30 1RF metformin 500 mg tablet 500 mg PO BID Qty: 200 3RF bumetanide 1 mg tablet 2 mg PO DAILY Qty: 60 11RF (DME) pen needle, diabetic [1st Tier Unifine Pentips] 29 gauge x 1/2 needle See Rx Instructions .Route Qty: 300 11RF Rx Instructions: As directed insulin lispro [Humalog KwikPen Insulin] 100 unit/mL insulin pen 5 unit SUBCUT TID Qty: 15 11RF Rx Instructions: before a meal. bumetanide 1 mg tablet 1 mg PO DAILY Qty: 30 0RF propranolol 10 mg tablet 10 mg PO DAILY tramadol 50 mg tablet 50 mg PO Q6H PRN (Reason: pain) Qty: 30 0RF Rx Instructions: postop exempt Referrals: Joe Varghese MD [Non-Staff] - As soon as possible Mustapha Kapadia DO [Primary Care Provider] - Stand Alone Forms: Patient Portal/API/Survey
--- NOTE | 2025-02-07 18:10 | DI.RAD.S_ITS ---
PROCEDURE: XR CHEST 1V INDICATIONS: lower leg edema TECHNIQUE: One view of the chest was acquired. COMPARISON: [facility], CR, XR CHEST 1V, 12/10/2024, 13:25. FINDINGS: Surgical changes and devices: None. Lungs and pleura: No pneumothorax. Small left pleural effusion. Mild pulmonary edema. Low lung volumes. Mediastinum: Mediastinal contours appear normal. Heart size is normal. Bones and chest wall: No suspicious bony lesions. Overlying soft tissues appear unremarkable. IMPRESSION: Left pleural effusion and mild pulmonary edema. Approved by: Kelley Loaiza M.D.,Ph.D. on 02/07/2025 at 21:07
[2025-02-07 18:55] LABS: Add Manual Diff / Slide Review NO; Basophils Absolute Auto 0 /uL (0-100); Basophils Percent Auto 0.7 % (0-2); Eosinophils Absolute Auto 100 /uL (0-450); Eosinophils Percent Auto 1.8 % (2-4); Lymphocytes Absolute Auto 600 /uL (1100-4500); Lymphocytes Percent Auto 12.6 % (25-40); Mean Corpuscular HGB Conc 31.6 % (30-36); Mean Corpuscular Hemoglobin 26.1 PG (26-34); Mean Corpuscular Volume 82.8 fL (80-100); Monocytes Absolute Auto 400 /uL (0-900); Monocytes Percent Auto 8.6 % (3-14); Neutrophils Absolute Auto 3500 /uL (1500-7000); Neutrophils Percent Auto 76.3 % (50-75); Platelet Count 133 X10^3/uL (150-400); Red Blood Cell Count 2.07 X10^6/uL (4.0-5.2); Red Cell Distribution Width 18.9 % (11.6-14.8); White Blood Cell Count 4.5 X10^3/uL (4.5-11.0)
[2025-02-07 18:58] LABS: Hemoglobin 5.4 g/dL (12.0-16.0)
[2025-02-07 18:59] LABS: Hematocrit 17.1 % (36-46)
[2025-02-07 19:03] LABS: INR 1.3 (0.9-1.3); Prothrombin Time 14.2 SECONDS (9.4-12.5)
[2025-02-07 19:05] LABS: PTT Partial Thromboplastin Tim 26 SECONDS (25.1-36.5)
[2025-02-07 19:12] LABS: Lactate (Lactic Acid) 2.2 mmol/L (0.7-2.1)
[2025-02-07 19:13] LABS: Ammonia (NH3) 14 umol/L (9-30); Creatine Kinase 67 U/L (30-135); Magnesium 1.9 mg/dL (1.6-2.3)
[2025-02-07 19:15] LABS: Alanine Aminotransferase 33 IU/L (<35); Albumin 3.3 g/dL (3.5-5.0); Albumin Globulin Ratio 1.1 (1.0-2.8); Alkaline Phosphatase 137 U/L (38-126); Aspartate Aminotransferase 47 IU/L (14-36); BUN Creatinine Ratio 21.8 (6-22); Bilirubin Total 1.6 mg/dL (0.2-1.3); Blood Urea Nitrogen 24 mg/dL (7-17); Calcium 9.3 mg/dL (8.4-10.2); Carbon Dioxide 20 mmol/L (22-32); Chloride 105 mmol/L (98-107); Estimated Glomerular Filt Rate 52 mL/min (>60); Globulin 3.1 g/dL (1.7-4.1); Glucose 236 mg/dL (80-110); HEMOLYSIS < 15 (0-50); Lipase 115 U/L (23-300); Potassium 4.7 mmol/L (3.4-5.1); Sodium 132 mmol/L (137-145); Total Protein 6.4 g/dL (6.3-8.2)
[2025-02-07 19:25] LABS: NT-proBNP (BNP-Adult 18+) 1020 pg/mL (<450); Troponin I < 0.012 ng/mL (0.01-0.034)
--- NOTE | 2025-02-07 20:04 | EKG_ITS ---
[address] [address] [place] [address] Test Date: 2025-02-07 Pat Name: Naa Landry Department: [facility] Room: Gender: Female Clerk Checker: RADHA CALDERON : 1950 Requested By: Order Number: [id number] Reading MD: Regan Paris MD Measurements Intervals [place] Rate: 101 P: ND: 134 QRS: -9 QRSD: 64 T: -10 QT: 356 QTc: 461 Interpretive Statements Sinus tachycardia Low voltage QRS Nonspecific ST and T wave abnormality Electronically Signed On 02-08-2025 7:29:04 PDT by Regan Paris MD
[2025-02-07 20:26] LABS: Reflexed Lactate in 2 Hours Y
[2025-02-07 21:34] LABS: Lactate 2HR (Lactic Acid Rflx) 1.8 mmol/L (0.7-2.1)
[2025-02-07] MEDS: FUROSEMIDE 40 MG/4 ML VIAL IV (23:50)
[2025-02-08] VITALS (13 sets, daily range): BP systolic 113–134; BP diastolic 55–61; PULSE 80–92; RESP 20–27; TEMP 36.9; O2SAT 97–99
[2025-02-08] MEDS: cephALEXin 250 MG CAPSULE 500 MG PO (03:01)
== END 2025-02-08 03:25 | disposition home or self-care (01) ==
PROVIDERS: Emergency Medicine; Emergency Provider Student in an Organized Health Care Education/Training Program; PCP Family Medicine
DX: R18.8 Other ascites (principal); D64.9 Anemia, unspecified; N39.0 Urinary tract infection, site not specified; R06.02 Shortness of breath; R53.1 Weakness; R00.0 Tachycardia, unspecified
CPT/HCPCS: 36415; 36430; 71045; 74177; 80053; 81003; 81015; 82140; 82550; 83605; 83690; 83735; 83880; 84484; 85025; 85610; 85730; 86850; 86900; 86901; 87086; 93005; 93010; 96374; 99285; P9016; J1940; Q9967

== ENCOUNTER 2025-02-11 22:23 | Emergency (ER) | payer MEDICARE, OTHER, SELFPAY ==
[2025-02-11 22:31] VITALS: BP 129/62; PULSE 86; RESP 18; TEMP 36.4; O2SAT 99; BMI 39.3
--- NOTE | 2025-02-12 01:09 | ED.GENADULT ---
HPI - General Adult General Chief complaint: Abdominal Pain Stated complaint: edema of legs, belly too swollen for subQ insulin Time Seen by Provider: 02/12/25 01:08 Source: patient, RN notes reviewed and old records reviewed Mode of arrival: Wheelchair Limitations: no limitations History of Present Illness HPI narrative: 74-year-old female history of diabetes, hypothyroidism, hypertension, cirrhosis with the anemia who presents with complaint of increasing swelling of her abdomen and states that her insulin is leaking back out when she injection mucous she was swollen pushing up on her chest and causing shortness of breath. Patient was on 02/07/2025 had a hemoglobin of 5.4 was transfused 2 units paracentesis was deferred as patient was not requiring any O2. Patient presents today because when she gives herself her insulin she states it is leaking back out. She shows me her shirt she has a little bit of yellowish discoloration which looks more likely ascitic fluid. She states this is happened a few times but has been more frequent lately. She denies fevers or chills. No chest pain no new shortness of breath. She states her abdomen has not been tight. She states her legs has been more swollen. She denies any diarrhea or constipation no black or bloody stools. No nausea or vomiting. She states she feels much better after she would her transfusion. She notes she has been on antibiotic and they increased her Lasix to twice daily which has been helping with her swelling. She has not appointment this week for ultrasound and follow up. She is on lactulose daily as well as insulin, levothyroxine, medications for diabetes and water pill. She follows with Dr. Kapadia as her primary care physician. She is supposed to see Gastroenterology soon. She was also supposed to move back to [place] at the end of February. She was accompanied by her son today. Related Data Home Medications Medication Instructions Recorded Confirmed propylene glycol 0.6 % eye drops 1 drp EYE-BOTH DAILY 05/21/23 12/27/24 (Systane Complete) propranolol 10 mg tablet 10 mg PO DAILY 12/06/24 12/27/24 Previous Rx's Medication Instructions Recorded escitalopram oxalate 5 mg tablet 5 mg PO DAILY #90 tabs 02/07/24 glimepiride 2 mg tablet 2 mg PO BID #180 tabs 02/07/24 levothyroxine 75 mcg tablet 75 mcg PO DAILY #90 tabs 02/07/24 spironolactone 100 mg tablet 100 mg PO DAILY #90 tabs 02/07/[address]ing Permit See Rx Instructions .Route 02/23/24 .COMPLEX #1 ea cyclobenzaprine 5 mg tablet 2.5 - 5 mg (0.5 - 1 x 5 mg) PO BID 06/29/24 PRN muscle spasm #30 tabs bumetanide 1 mg tablet 2 mg (2 x 1 mg) PO DAILY edema #60 10/03/24 tabs metformin 500 mg tablet 500 mg PO BID #200 tabs 10/03/24 insulin glargine 100 unit/mL (3 10 unit (0.1 mL) SUBCUT DAILY #15 11/24/24 mL) subcutaneous pen (Lantus mL Solostar U-100 Insulin) tramadol 50 mg tablet 50 mg PO BID PRN pain #30 tabs 11/24/24 tramadol 50 mg tablet 50 mg PO Q6H PRN pain #30 tabs 12/06/24 bumetanide 1 mg tablet 1 mg PO DAILY #30 tabs 12/10/24 insulin lispro 100 unit/mL 5 unit (0.05 mL) SUBCUT TID #15 mL 12/27/24 subcutaneous pen (Humalog KwikPen (U-100) Insulin) pen needle, diabetic 29 gauge x #300 ea 12/27/24 1/2 (1st Tier Unifine Pentips) lactulose 10 gram/15 mL oral 30 ml PO DAILY #946 mL 01/17/25 solution cephalexin 500 mg capsule 500 mg PO BID 7 days #14 caps 02/08/25 Allergies Allergy/AdvReac Type Severity Reaction Status Date / Time wool Allergy Unknown Verified 02/11/25 22:31 acetaminophen [From Tylenol] AdvReac Unknown Hallucinations, Verified 02/11/25 22:31 can't sleep at night, hyper. aspirin AdvReac Unknown Stomach Verified 02/11/25 22:31 burning. codeine AdvReac Unknown Jitters, Verified 02/11/25 22:31 depression. fluoxetine AdvReac Unknown Headache, Verified 02/11/25 22:31 depression, anxiety, stomach upset. hydrocodone AdvReac Unknown Nausea and Verified 02/11/25 22:31 vomitting. ibuprofen AdvReac Unknown Gastrointestinal Verified 02/11/25 22:31 Upset Latex, Natural Rubber AdvReac Unknown Rash Verified 02/11/25 22:31 morphine AdvReac Unknown itching Verified 02/11/25 22:31 from the inside out propoxyphene [From Darvon] AdvReac Unknown Nausea Verified 02/11/25 22:31 cellulose AdvReac Unknown Cough Uncoded 12/27/24 12:57 Review of Systems Review of Systems ROS Unobtainable: All systems reviewed & are unremarkable except as noted in HPI and below Patient History Medical History CKD (chronic kidney disease) Low ferritin Normochromic anemia Aortic stenosis Arthritis Anemia Anxiety Neuropathy Diabetes type 2, controlled Hypothyroidism Sleep apnea Depression Mumps Measles Chicken pox Painful menstrual periods Colon polyps Cirrhosis Hypertension Surgical History Anesthesia History of tubal ligation (~1974) History of hysterectomy History of cholecystectomy (~1968) Family History Father COPD (chronic obstructive pulmonary disease) Mother Diabetes mellitus History of heart disease Hyperlipidemia Hypertension Brother Type 2 diabetes mellitus Hypertension Sister Cancer Sister Osteopenia Grandfather Cancer Grandfather Pneumonia Social History marital status: unknown details: Pt. lives in a Independent Care Facility. household members: none lives independently: Yes caregiver/support person: Yes occupational status: previously employed Smoking Status: Former smoker alcohol intake: never substance use type: does not use Smoking Status: Former smoker Exam Narrative Exam Narrative: GENERAL: Alert and oriented x three, female no acute distress HEENT: Head normocephalic, atraumatic, EOMI, pupils reactive, face symmetric, moist mucous membranes NECK: Supple, full range of motion CARDIOVASCULAR: Regular rate and rhythm without murmurs, rubs or gallops. RESPIRATORY: Breath sounds equal bilaterally, no wheezes rales or rhonchi. ABDOMEN: Soft, nontender. Distended but soft. Patient has a fluid wave. Normoactive bowel sounds all 4 quadrants. No guarding or rebound, rigidity, no mass : No CVA tenderness EXTREMITIES: Normal range of motion, bilateral lower extremity edema. Neurovascularly intact NEUROLOGICAL: Cranial nerves II through XII grossly intact. Moving all extremities SKIN: Warm, dry, no petechiae, no rashes or lesions. Initial Vital Signs Initial Vital Signs: Vital Signs Temperature 97.6 F 02/11/25 22:31 Pulse Rate 86 02/11/25 22:31 Respiratory Rate 18 02/11/25 22:31 Blood Pressure 129/62 02/11/25 22:31 Pulse Oximetry 99 02/11/25 22:31 Oxygen Delivery Method Room Air 02/11/25 22:31 Course Orders Ordered: ED Orders 02/12/25 02:00 Ammonia (NH3) Stat CBC Auto Diff [Complete Blood Count AUTO DIFF] Stat CMP [Comprehensive Metabolic Panel] Stat Lipase Stat Type and Screen Stat Vital Signs Vital signs: Vital Signs - 8 hr 02/11/25 22:31 02/12/25 02:16 02/12/25 02:19 Temperature 97.6 F Pulse Rate 86 77 Respiratory Rate 18 Blood Pressure 129/62 133/69 Pulse Oximetry 99 Oxygen Delivery Method Room Air 02/12/25 02:19 02/12/25 02:30 02/12/25 03:00 Temperature Pulse Rate 75 75 70 Respiratory Rate 23 25 H 18 Blood Pressure Pulse Oximetry 97 98 96 Oxygen Delivery Method Room Air 02/12/25 03:28 Temperature Pulse Rate 72 Respiratory Rate 18 Blood Pressure 119/57 L Pulse Oximetry 97 Oxygen Delivery Method Room Air Medical Decision Making Lab Data 02/12/25 02:00 02/12/25 02:00 Labs: Lab Results 02/12/25 Range/Units 02:00 WBC 4.7 (4.5-11.0) X10^3/uL RBC 2.75 L (4.0-5.2) X10^6/uL Hgb 7.5 L (12.0-16.0) g/dL Hct 23.1 L (36-46) % MCV 84.1 (80-100) fL MCH 27.1 (26-34) PG MCHC 32.2 (30-36) % RDW 18.2 H (11.6-14.8) % Plt Count 121 L (150-400) X10^3/uL Neut % (Auto) 74.6 (50-75) % Lymph % (Auto) 12.1 L (25-40) % [place] % (Auto) 9.7 (3-14) % Eos % (Auto) 2.7 (2-4) % Baso % (Auto) 0.9 (0-2) % Neut # (Auto) 3500 (9853-7124) /uL Lymph # (Auto) 600 L (0003-6286) /uL [place] # (Auto) 500 (0-900) /uL Eos # (Auto) 100 (0-450) /uL Baso # (Auto) 0 (0-100) /uL Sodium 133 L (137-145) mmol/L Potassium 4.4 (3.4-5.1) mmol/L Chloride 101 (98-107) mmol/L Carbon Dioxide 22 (22-32) mmol/L BUN 21 H (7-17) mg/dL Creatinine 1.22 H (0.52-1.04) mg/dL Estimated GFR 46 L (>60) mL/min BUN/Creatinine Ratio 17.2 (6-22) Glucose 258 H (80-110) mg/dL Calcium 8.7 (8.4-10.2) mg/dL Total Bilirubin 1.3 (0.2-1.3) mg/dL AST 31 (14-36) IU/L ALT 30 (<35) IU/L Alkaline Phosphatase 181 H (38-126) U/L Ammonia 24 (9-30) umol/L Total Protein 6.2 L (6.3-8.2) g/dL Albumin 3.2 L (3.5-5.0) g/dL Globulin 3.0 (1.7-4.1) g/dL Albumin/Globulin Ratio 1.1 (1.0-2.8) Lipase 176 D (23-300) U/L Blood Type O Positive Antibody Screen Negative [facility] Narrative Medical decision making narrative: 74-year-old female who comes in with complaint of abdominal swelling and edema in her legs and states her insulin is leaking back out when she injects it although it looks like this might be ascitic fluid. Her abdomen is not tight it is actually quite soft but she does clearly have ascites. She had blood transfusion with 2 units about 6 days ago so plan to repeat labs. She states she was feeling much better compared to when she came in. She was hemodynamically stable. Labs show white count of 4.7 hemoglobin is 7.5 platelets of 121, sodium is 133 creatinine is 1.22 this is slightly elevated from patient's 1.1 but patient has ranged there to 1.07 in the past BUN 21 electrolytes are otherwise appropriate glucose is 258. Alk-phos is 181 but otherwise normal LFTs lipase is 176. Ammonia is 24. Reviewed findings from patient today she was very hemodynamically stable with no distress I do not feel that she requires paracentesis. Her abdomen is quite soft she was not distended or tight. She notes a little bit of fluid leakage when she does her insulin so discussed placing a little bit of pressure immediately afterwards for a few minutes to see if this helps. She was follow up appointment this Wednesday rate about 24 hours with primary care. Discharge Plan Departure Patient Disposition: Home Clinical Impression: Ascites Activity Restrictions/Additional Instructions: Follow up with your physician your labs today to appear improved your hemoglobin is appropriate for the amount of blood that you received, your creatinine is slightly off from what it was on your last visit and that should be followed up with your physician. I would continue with your current medications including your diuretic twice daily. Call your your physician in the morning to set up for outpatient paracentesis these can be scheduled regularly. Please return if you are having new or worsening symptoms, worsening drainage from your abdomen new pain, fevers, changes to mentation, vomiting, rapidly worsening swelling or other new or concerning changes. Prescriptions: No Action Disabled Parking Permit See Rx Instructions .ROUTE .COMPLEX Qty: 1 0RF Rx Instructions: Permanent placard lactulose 10 gram/15 mL solution 30 ml PO DAILY Qty: 946 3RF Systane Complete 0.6 % drops 1 drp EYE-BOTH DAILY levothyroxine 75 mcg tablet 75 mcg PO DAILY Qty: 90 3RF escitalopram oxalate 5 mg tablet 5 mg PO DAILY Qty: 90 3RF glimepiride 2 mg tablet 2 mg PO BID Qty: 180 3RF Hold Instructions: ozempic spironolactone 100 mg tablet 100 mg PO DAILY Qty: 90 3RF insulin glargine [Lantus Solostar U-100 Insulin] 100 unit/mL (3 mL) insulin pen 10 unit SUBCUT DAILY Qty: 15 5RF Patient Comments: hasn't started it yet tramadol 50 mg tablet 50 mg PO BID PRN (Reason: pain) Qty: 30 0RF cyclobenzaprine 5 mg tablet 2.5 - 5 mg PO BID PRN (Reason: muscle spasm) Qty: 30 1RF metformin 500 mg tablet 500 mg PO BID Qty: 200 3RF bumetanide 1 mg tablet 2 mg PO DAILY Qty: 60 11RF (DME) pen needle, diabetic [1st Tier Unifine Pentips] 29 gauge x 1/2 needle See Rx Instructions .Route Qty: 300 11RF Rx Instructions: As directed insulin lispro [Humalog KwikPen Insulin] 100 unit/mL insulin pen 5 unit SUBCUT TID Qty: 15 11RF Rx Instructions: before a meal. bumetanide 1 mg tablet 1 mg PO DAILY Qty: 30 0RF propranolol 10 mg tablet 10 mg PO DAILY tramadol 50 mg tablet 50 mg PO Q6H PRN (Reason: pain) Qty: 30 0RF Rx Instructions: postop exempt cephalexin 500 mg capsule 500 mg PO BID 7 Days Qty: 14 0RF Referrals: Mustapha Kapadia DO [Primary Care Provider] - Stand Alone Forms: Patient Portal/API/Survey
[2025-02-12 02:03] LABS: Add Manual Diff / Slide Review NO; Basophils Absolute Auto 0 /uL (0-100); Basophils Percent Auto 0.9 % (0-2); Eosinophils Absolute Auto 100 /uL (0-450); Eosinophils Percent Auto 2.7 % (2-4); Hematocrit 23.1 % (36-46); Hemoglobin 7.5 g/dL (12.0-16.0); Lymphocytes Absolute Auto 600 /uL (1100-4500); Lymphocytes Percent Auto 12.1 % (25-40); Mean Corpuscular HGB Conc 32.2 % (30-36); Mean Corpuscular Hemoglobin 27.1 PG (26-34); Mean Corpuscular Volume 84.1 fL (80-100); Monocytes Absolute Auto 500 /uL (0-900); Monocytes Percent Auto 9.7 % (3-14); Neutrophils Absolute Auto 3500 /uL (1500-7000); Neutrophils Percent Auto 74.6 % (50-75); Platelet Count 121 X10^3/uL (150-400); Red Blood Cell Count 2.75 X10^6/uL (4.0-5.2); Red Cell Distribution Width 18.2 % (11.6-14.8); White Blood Cell Count 4.7 X10^3/uL (4.5-11.0)
[2025-02-12 02:15] LABS: Alanine Aminotransferase 30 IU/L (<35); Albumin 3.2 g/dL (3.5-5.0); Albumin Globulin Ratio 1.1 (1.0-2.8); Alkaline Phosphatase 181 U/L (38-126); Ammonia (NH3) 24 umol/L (9-30); Aspartate Aminotransferase 31 IU/L (14-36); BUN Creatinine Ratio 17.2 (6-22); Bilirubin Total 1.3 mg/dL (0.2-1.3); Blood Urea Nitrogen 21 mg/dL (7-17); Calcium 8.7 mg/dL (8.4-10.2); Carbon Dioxide 22 mmol/L (22-32); Chloride 101 mmol/L (98-107); Estimated Glomerular Filt Rate 46 mL/min (>60); Glucose 258 mg/dL (80-110); HEMOLYSIS < 15 (0-50); Lipase 176 U/L (23-300); Potassium 4.4 mmol/L (3.4-5.1); Sodium 133 mmol/L (137-145); Total Protein 6.2 g/dL (6.3-8.2)
[2025-02-12 02:16] VITALS: PULSE 77
[2025-02-12 02:19] VITALS: BP 133/69; PULSE 75; RESP 23; O2SAT 97
[2025-02-12 02:30] VITALS: PULSE 75; RESP 25; O2SAT 98
[2025-02-12 03:00] VITALS: PULSE 70; RESP 18; O2SAT 96
[2025-02-12 03:28] VITALS: BP 119/57; PULSE 72; RESP 18; O2SAT 97
== END 2025-02-12 03:35 | disposition home or self-care (01) ==
PROVIDERS: Emergency Provider Emergency Medicine; PCP Family Medicine
DX: R18.8 Other ascites (principal); E11.9 Type 2 diabetes mellitus without complications; Z79.4 Long term (current) use of insulin
CPT/HCPCS: 36415; 80053; 82140; 83690; 85025; 86850; 86900; 86901; 99283

== ENCOUNTER → 2025-02-15 13:46 | Outpatient (CLI) | payer MEDICARE, OTHER, SELFPAY ==
--- NOTE | 2025-02-15 13:50 | DI.US.S_ITS ---
PROCEDURE: US ABDOMEN LIMITED INDICATIONS: CIRRHOSIS OF LIVER W ASCITES TECHNIQUE: Real-time focused scanning was performed of the abdomen, with image documentation. COMPARISON: [facility], US, US ABDOMEN COMPLETE, 03/10/2024, 8:16. [facility], CT, CT ABDOMEN PELVIS W CON, 02/07/2025, 19:27. FINDINGS: The liver demonstrates normal size. The liver demonstrates generalized mildly increased echogenicity, with a heterogeneous, nodular appearance. This decreases ultrasound sensitivity for detection of hepatic masses. The main portal vein demonstrates normal size and demonstrates normal appearing, hepatopetal flow. Cholecystectomy. There is no biliary dilatation for a post cholecystectomy patient, the common bile duct measures 8 mm. No significant pancreatic abnormality is seen on these images. A mild to moderate amount of ascites is seen. IMPRESSION: Cirrhosis, with a [id number] amount of ascites. Status post cholecystectomy, without biliary dilatation. Dictated by: Sal García M.D. on 02/15/2025 at 14:03 Approved by: Sal García M.D. on 02/15/2025 at 14:04
== END ==
LOC: US 13:49
PROVIDERS: PCP Family Medicine; Referring Provider Internal Medicine Gastroenterology; Visit Provider Internal Medicine Gastroenterology
DX: K74.60 Unspecified cirrhosis of liver (principal); R18.8 Other ascites; Z90.49 Acquired absence of other specified parts of digestive tract
CPT/HCPCS: 76705